=== PATIENT | female | born 1940 | race Caucasian/White ===

== ENCOUNTER → 2016-10-05 | Outpatient (CLI) | payer MEDICARE, OTHER ==
[2016-10-05 08:15] LABS: ABSOLUTE EOSINOPHILS # (AUTO) 0.3 10^3/uL (0.0-0.6); ABSOLUTE LYMPHOCYTES (AUTO) 1.3 10^3/uL (0.5-4.7); ABSOLUTE MONOCYTES (AUTO) 0.5 10^3/uL (0.1-1.4); ABSOLUTE NEUT (AUTO) 2.8 10^3/uL (1.7-8.2); BASOPHILS % (AUTO) 0.9 % (0-2); EOSINOPHILS % (AUTO) 5.9 % (0-6); HEMATOCRIT 34.7 % (36.0-47.0); HEMOGLOBIN 11.6 g/dL (12.0-15.5); HGB HCT DIFFERENCE 0.1; LYMPHOCYTES % (AUTO) 26.4 % (13-45); MEAN CORPUSCULAR HEMOGLOBIN 30.6 pg (27.0-33.4); MEAN CORPUSCULAR HGB CONC 33.3 g/dL (32.0-36.0); MEAN CORPUSCULAR VOLUME 92 fl (80-97); MONOCYTES % (AUTO) 9.6 % (3-13); RED BLOOD COUNT 3.77 10^6/uL (3.72-5.28); RED CELL DISTRIBUTION WIDTH 14.2 % (11.5-14.0); SEGMENTED NEUTROPHILS % (AUTO) 57.2 % (42-78); WHITE BLOOD COUNT 4.9 10^3/uL (4.0-10.5)
[2016-10-05 08:36] LABS: ALANINE AMINOTRANSFERASE 31 U/L (9-52); ALBUMIN 3.6 g/dL (3.5-5.0); ALKALINE PHOSPHATASE 163 U/L (38-126); ANION GAP 12 (5-19); ASPARTATE AMINO TRANSFERASE 19 U/L (14-36); BILIRUBIN,DIRECT 0.3 mg/dL (0.0-0.4); BILIRUBIN,TOTAL 0.3 mg/dL (0.2-1.3); BLOOD UREA NITROGEN 30 mg/dL (7-20); CALCIUM 9.7 mg/dL (8.4-10.2); CARBON DIOXIDE 25 mmol/L (22-30); CHLORIDE 107 mmol/L (98-107); Direct HDL 36 mg/dL (>40); GLUCOSE 96 mg/dL (75-110); POTASSIUM 5.7 mmol/L (3.6-5.0); SODIUM 144.1 mmol/L (137-145); TOTAL PROTEIN 6.6 g/dL (6.3-8.2); TRIGLYCERIDES 253 mg/dL (<150)
[2016-10-05 08:46] LABS: DIRECT LDL 121 mg/dL (<100)
[2016-10-05 08:47] LABS: VLDL CHOLESTEROL 50.6 mg/dL (10-31)
== END ==
LOC: OD 07:06
PROVIDERS: ATTEND Internal Medicine
DX: R53.82 Chronic fatigue, unspecified (principal); I10 Essential (primary) hypertension; E78.5 Hyperlipidemia, unspecified; J44.9 Chronic obstructive pulmonary disease, unspecified
CPT/HCPCS: 36415; 80053; 80061; 84443; 85025

== ENCOUNTER → 2016-10-25 | Outpatient (CLI) | payer MEDICARE, OTHER ==
[2016-10-25 11:28] LABS: ANION GAP 11 (5-19); BLOOD UREA NITROGEN 32 mg/dL (7-20); CARBON DIOXIDE 27 mmol/L (22-30); CHLORIDE 105 mmol/L (98-107); CREATININE RESULT 1.07 mg/dL (0.52-1.25); MAGNESIUM 1.6 mg/dL (1.6-2.3); SODIUM 142.9 mmol/L (137-145)
[2016-10-25 11:39] LABS: POTASSIUM 5.9 mmol/L (3.6-5.0)
== END ==
LOC: OD 10:08
PROVIDERS: ATTEND Internal Medicine
DX: E87.5 Hyperkalemia (principal); N18.9 Chronic kidney disease, unspecified
CPT/HCPCS: 36415; 80051; 82565; 83735; 84520

== ENCOUNTER → 2016-11-15 | Outpatient (CLI) | payer MEDICARE, OTHER ==
[2016-11-15 12:42] LABS: ANION GAP 12 (5-19); BLOOD UREA NITROGEN 46 mg/dL (7-20); CARBON DIOXIDE 30 mmol/L (22-30); CHLORIDE 98 mmol/L (98-107); CREATININE RESULT 1.25 mg/dL (0.52-1.25); POTASSIUM 5.6 mmol/L (3.6-5.0); SODIUM 140.1 mmol/L (137-145)
== END ==
LOC: OD 11:12
PROVIDERS: ATTEND Internal Medicine
DX: E87.5 Hyperkalemia (principal); I10 Essential (primary) hypertension; N18.9 Chronic kidney disease, unspecified
CPT/HCPCS: 36415; 80051; 82565; 84520

== ENCOUNTER → 2017-01-10 | Outpatient (CLI) | payer MEDICARE, OTHER ==
[2017-01-10 14:08] LABS: HEMATOCRIT 34.9 % (36.0-47.0); HEMOGLOBIN 11.7 g/dL (12.0-15.5); HGB HCT DIFFERENCE 0.2; MEAN CORPUSCULAR HEMOGLOBIN 30.9 pg (27.0-33.4); MEAN CORPUSCULAR HGB CONC 33.6 g/dL (32.0-36.0); MEAN CORPUSCULAR VOLUME 92 fl (80-97); RED BLOOD COUNT 3.79 10^6/uL (3.72-5.28); RED CELL DISTRIBUTION WIDTH 14.3 % (11.5-14.0); WHITE BLOOD COUNT 5.7 10^3/uL (4.0-10.5)
[2017-01-10 14:28] LABS: ANION GAP 10 (5-19); BLOOD UREA NITROGEN 37 mg/dL (7-20); CALCIUM 9.2 mg/dL (8.4-10.2); CARBON DIOXIDE 26 mmol/L (22-30); CHLORIDE 103 mmol/L (98-107); GLUCOSE 94 mg/dL (75-110); POTASSIUM 4.9 mmol/L (3.6-5.0); SODIUM 139.2 mmol/L (137-145)
[2017-01-10 14:52] LABS: APPEARANCE,URINE SLIGHTLY-CLOUDY; BILIRUBIN,URINE NEGATIVE (NEGATIVE); GLUCOSE, URINE NEGATIVE (NEGATIVE); KETONES,URINE NEGATIVE (NEGATIVE); URINE SPECIFIC GRAVITY 1.018
[2017-01-10 14:53] LABS: BACTERIA,URINE TRACE /HPF; LEUKOCYTE ESTERASE,URINE NEGATIVE (NEGATIVE); NITRITE,URINE NEGATIVE (NEGATIVE); PROTEIN,URINE 30 mg/dL (NEGATIVE); RBC,URINE NONE SEEN /HPF; UROBILINOGEN,URINE NEGATIVE mg/dL (<2.0); WBC,URINE NONE SEEN /HPF
== END ==
LOC: OD 12:43
PROVIDERS: ATTEND Internal Medicine Nephrology
DX: I12.9 Hypertensive chronic kidney disease with stage 1 through stage 4 chronic kidney disease, or unspecified chronic kidney disease (principal); N18.3 Chronic kidney disease, stage 3 (moderate); E87.5 Hyperkalemia
CPT/HCPCS: 36415; 80048; 81001; 85027

== ENCOUNTER → 2017-04-11 | Outpatient (CLI) | payer MEDICARE, OTHER ==
[2017-04-11 08:30] LABS: HEMATOCRIT 34.4 % (36.0-47.0); HEMOGLOBIN 11.9 g/dL (12.0-15.5); HGB HCT DIFFERENCE 1.3; MEAN CORPUSCULAR HEMOGLOBIN 31.7 pg (27.0-33.4); MEAN CORPUSCULAR HGB CONC 34.7 g/dL (32.0-36.0); MEAN CORPUSCULAR VOLUME 91 fl (80-97); RED BLOOD COUNT 3.76 10^6/uL (3.72-5.28); RED CELL DISTRIBUTION WIDTH 13.7 % (11.5-14.0); WHITE BLOOD COUNT 5.3 10^3/uL (4.0-10.5)
[2017-04-11 08:39] LABS: APPEARANCE,URINE SLIGHTLY-CLOUDY; BILIRUBIN,URINE NEGATIVE (NEGATIVE); GLUCOSE, URINE NEGATIVE (NEGATIVE); KETONES,URINE NEGATIVE (NEGATIVE); LEUKOCYTE ESTERASE,URINE NEGATIVE (NEGATIVE); NITRITE,URINE NEGATIVE (NEGATIVE); PROTEIN,URINE NEGATIVE (NEGATIVE); URINE SPECIFIC GRAVITY 1.013; UROBILINOGEN,URINE NEGATIVE mg/dL (<2.0)
[2017-04-11 08:57] LABS: ANION GAP 10 (5-19); BLOOD UREA NITROGEN 37 mg/dL (7-20); CARBON DIOXIDE 29 mmol/L (22-30); CHLORIDE 103 mmol/L (98-107); CREATININE RESULT 1.26 mg/dL (0.52-1.25); GLUCOSE 96 mg/dL (75-110); POTASSIUM 5.4 mmol/L (3.6-5.0); SODIUM 142.2 mmol/L (137-145)
[2017-04-11 09:06] LABS: URINE CREATININE 76.9 mg/dL (15-278); URINE PROTEIN 11.3 mg/dL (<12)
== END ==
LOC: OD 07:36
PROVIDERS: ATTEND Internal Medicine Nephrology
DX: I12.9 Hypertensive chronic kidney disease with stage 1 through stage 4 chronic kidney disease, or unspecified chronic kidney disease (principal); N18.3 Chronic kidney disease, stage 3 (moderate); E87.5 Hyperkalemia
CPT/HCPCS: 36415; 80048; 81001; 82570; 84156; 85027

== ENCOUNTER → 2017-06-21 | Outpatient (CLI) | payer MEDICARE, OTHER ==
--- NOTE | 2017-06-21 10:08 | WOMENS IMAGING REPORT ---
EXAM DESCRIPTION: BONE DENSITY HIP/SPINE COMPLETED DATE/TIME: 06/21/2017 9:59 am REASON FOR STUDY: AGE-RELATED OSTEOPROSIS; M81.0 M81.0 AGE-RELATED OSTEOPOROSIS W/O CURRENT PATHOLO JAMIE FRAC COMPARISON: None. TECHNIQUE: Dual-Energy X-ray Absorptiometry (DEXA) of the AP Spine and Hip. LIMITATIONS: None. FINDINGS: LUMBAR SPINE: The bone mineral density (BMD) measured from L1-L4 in the AP projection correlates with a T-score of 0.4, which is normal as defined by the World Health Organization. HIP: The bone mineral density (BMD) measured in the left hip correlates with a T-score of -1.4, which is o steopenia as defined by the World Health Organization. IMPRESSION: 1. LUMBAR SPINE: NORMAL. 2. HIP: OSTEOPENIA. COMMENT: The World Health Organization defines low BMD as follows: T-score: Normal: Greater than -1.0 Osteopenia: Between -1.0 and -2.5 Osteoporosis: Less than -2.5 without fractures Established osteoporosis: Less than -2.5 with fractures In general, you may wish to consider: Diagnosis Treatment Follow-up DEXA Normal BMD Prevention 2-3 years Osteopenia Prevention/Therapy 1-2 years Osteoporosis Therapy Yearly TECHNICAL DOCUMENTATION: JOB ID: [id number] [employer]- All Rights Reserved
== END ==
LOC: RAD 09:38
PROVIDERS: ATTEND Internal Medicine Rheumatology
DX: M81.0 Age-related osteoporosis without current pathological fracture (principal)
CPT/HCPCS: 77080

== ENCOUNTER → 2017-07-15 | Outpatient (CLI) | payer MEDICARE, OTHER ==
[2017-07-15 09:06] LABS: HEMATOCRIT 34.4 % (36.0-47.0); HEMOGLOBIN 11.6 g/dL (12.0-15.5); MEAN CORPUSCULAR HEMOGLOBIN 30.7 pg (27.0-33.4); MEAN CORPUSCULAR HGB CONC 33.8 g/dL (32.0-36.0); MEAN CORPUSCULAR VOLUME 91 fl (80-97); PLATELET COUNT 200 10^3/uL (150-450); RED BLOOD COUNT 3.79 10^6/uL (3.72-5.28); RED CELL DISTRIBUTION WIDTH 13.6 % (11.5-14.0); WHITE BLOOD COUNT 7.6 10^3/uL (4.0-10.5)
[2017-07-15 09:20] LABS: APPEARANCE,URINE SLIGHTLY-CLOUDY; BILIRUBIN,URINE NEGATIVE (NEGATIVE); COLOR,URINE YELLOW; GLUCOSE, URINE NEGATIVE (NEGATIVE); KETONES,URINE NEGATIVE (NEGATIVE); LEUKOCYTE ESTERASE,URINE NEGATIVE (NEGATIVE); NITRITE,URINE NEGATIVE (NEGATIVE); PROTEIN,URINE NEGATIVE (NEGATIVE); URINE SPECIFIC GRAVITY 1.016; UROBILINOGEN,URINE NEGATIVE mg/dL (<2.0)
[2017-07-15 09:30] LABS: ANION GAP 12 (5-19); BLOOD UREA NITROGEN 38 mg/dL (7-20); CALCIUM 9.9 mg/dL (8.4-10.2); CARBON DIOXIDE 26 mmol/L (22-30); CHLORIDE 105 mmol/L (98-107); GLUCOSE 101 mg/dL (75-110); MAGNESIUM 1.8 mg/dL (1.6-2.3); POTASSIUM 5.2 mmol/L (3.6-5.0); SODIUM 142.5 mmol/L (137-145)
== END ==
LOC: OD 07:51
PROVIDERS: ATTEND Physician Assistant Medical
DX: N18.3 Chronic kidney disease, stage 3 (moderate) (principal); I12.9 Hypertensive chronic kidney disease with stage 1 through stage 4 chronic kidney disease, or unspecified chronic kidney disease; R80.9 Proteinuria, unspecified; E87.5 Hyperkalemia
CPT/HCPCS: 36415; 80048; 81001; 83735; 85027

== ENCOUNTER → 2017-11-29 | Outpatient (CLI) | payer MEDICARE, OTHER ==
[2017-11-29 08:34] LABS: HEMATOCRIT 35.6 % (36.0-47.0); HEMOGLOBIN 12.2 g/dL (12.0-15.5); MEAN CORPUSCULAR HEMOGLOBIN 31.1 pg (27.0-33.4); MEAN CORPUSCULAR HGB CONC 34.2 g/dL (32.0-36.0); MEAN CORPUSCULAR VOLUME 91 fl (80-97); PLATELET COUNT 213 10^3/uL (150-450); RED BLOOD COUNT 3.91 10^6/uL (3.72-5.28); RED CELL DISTRIBUTION WIDTH 13.9 % (11.5-14.0); WHITE BLOOD COUNT 5.9 10^3/uL (4.0-10.5)
[2017-11-29 08:57] LABS: ANION GAP 10 (5-19); BLOOD UREA NITROGEN 39 mg/dL (7-20); CALCIUM 9.8 mg/dL (8.4-10.2); CARBON DIOXIDE 31 mmol/L (22-30); CHLORIDE 100 mmol/L (98-107); GLUCOSE 108 mg/dL (75-110); POTASSIUM 4.9 mmol/L (3.6-5.0); SODIUM 141.4 mmol/L (137-145)
[2017-11-29 09:05] LABS: APPEARANCE,URINE SLIGHTLY-CLOUDY; BILIRUBIN,URINE NEGATIVE (NEGATIVE); COLOR,URINE YELLOW; GLUCOSE, URINE NEGATIVE (NEGATIVE); KETONES,URINE NEGATIVE (NEGATIVE); LEUKOCYTE ESTERASE,URINE NEGATIVE (NEGATIVE); NITRITE,URINE NEGATIVE (NEGATIVE); PROTEIN,URINE NEGATIVE (NEGATIVE); URINE SPECIFIC GRAVITY 1.009; UROBILINOGEN,URINE NEGATIVE mg/dL (<2.0)
[2017-11-29 09:38] LABS: UR PRO/CREAT RATIO RESULT 0.3 mg/mg (0.0-0.2); URINE CREATININE 52.5 mg/dL (15-278); URINE PROTEIN 16.4 mg/dL (<12)
== END ==
LOC: OD 07:18
PROVIDERS: ATTEND Internal Medicine Nephrology
DX: N18.3 Chronic kidney disease, stage 3 (moderate) (principal); R80.9 Proteinuria, unspecified; E87.5 Hyperkalemia
CPT/HCPCS: 36415; 80048; 81001; 82570; 84156; 85027

== ENCOUNTER → 2018-02-22 | Outpatient (CLI) | payer MEDICARE, OTHER ==
--- NOTE | 2018-02-22 08:21 | RADIOLOGY REPORT (SQ) ---
EXAM DESCRIPTION: CHEST PA/LATERAL COMPLETED DATE/TIME: 02/22/2018 7:45 am REASON FOR STUDY: CHRONIC OBSTRUCTIVE PULMONARY DISEASE, UNSPECIFIED,SOB COMPARISON: Chest films 01/09/2013, 07/22/2012, 10/05/2011 EXAM PARAMETERS: NUMBER OF VIEWS: two views TECHNIQUE: Digital Frontal and Lateral radiographic views of the chest acquired. RADIATION DOSE: NA LIMITATIONS: none FINDINGS: LUNGS AND PLEURA: Blurring of the lingular heart border on the frontal film, worrisome for lingular atelectasis or pneumonia. Remainder of the lungs are free of focal infiltrates. No pleural effusion. No pneumothorax. MEDIASTINUM AND HILAR STRUCTURES: No masses or contour abnormalities. HEART AND VASCULAR STRUCTURES: Mild cardiomegaly BONES: No acute findings. HARDWARE: None in the chest. OTHER: No other significant finding. IMPRESSION: Lingular airspace disease atelectasis versus pneumonia TECHNICAL DOCUMENTATION: JOB ID: [id number] [employer]- All Rights Reserved Reading location - IP/workstation name: [email or web address]
[2018-02-22 08:30] LABS: ABSOLUTE BASOPHILS # (AUTO) 0.1 10^3/uL (0.0-0.2); ABSOLUTE EOSINOPHILS # (AUTO) 0.4 10^3/uL (0.0-0.6); ABSOLUTE LYMPHOCYTES (AUTO) 2.3 10^3/uL (0.5-4.7); ABSOLUTE MONOCYTES (AUTO) 0.5 10^3/uL (0.1-1.4); ABSOLUTE NEUT (AUTO) 3.3 10^3/uL (1.7-8.2); BASOPHILS % (AUTO) 0.9 % (0-2); EOSINOPHILS % (AUTO) 5.4 % (0-6); HEMATOCRIT 35.8 % (36.0-47.0); HEMOGLOBIN 12.3 g/dL (12.0-15.5); MEAN CORPUSCULAR HEMOGLOBIN 31.2 pg (27.0-33.4); MEAN CORPUSCULAR HGB CONC 34.4 g/dL (32.0-36.0); MEAN CORPUSCULAR VOLUME 91 fl (80-97); MONOCYTES % (AUTO) 8.2 % (3-13); PLATELET COUNT 224 10^3/uL (150-450); RED BLOOD COUNT 3.94 10^6/uL (3.72-5.28); RED CELL DISTRIBUTION WIDTH 13.5 % (11.5-14.0); SEGMENTED NEUTROPHILS % (AUTO) 50.5 % (42-78); TOTAL CELLS COUNTED % (AUTO) 100 %; WHITE BLOOD COUNT 6.6 10^3/uL (4.0-10.5)
[2018-02-22 08:40] LABS: ALANINE AMINOTRANSFERASE 27 U/L (9-52); ALBUMIN 3.9 g/dL (3.5-5.0); ALKALINE PHOSPHATASE 137 U/L (38-126); ANION GAP 11 (5-19); ASPARTATE AMINO TRANSFERASE 23 U/L (14-36); BILIRUBIN,DIRECT 0.2 mg/dL (0.0-0.4); BILIRUBIN,TOTAL 0.2 mg/dL (0.2-1.3); BLOOD UREA NITROGEN 39 mg/dL (7-20); CALCIUM 9.2 mg/dL (8.4-10.2); CARBON DIOXIDE 28 mmol/L (22-30); CHLORIDE 107 mmol/L (98-107); CHOLESTEROL 264.74 mg/dL (0-200); GLUCOSE 112 mg/dL (75-110); POTASSIUM 5.5 mmol/L (3.6-5.0); TOTAL PROTEIN 6.9 g/dL (6.3-8.2); TRIGLYCERIDES 316 mg/dL (<150)
[2018-02-22 08:50] LABS: DIRECT LDL 123 mg/dL (<100)
[2018-02-22 08:52] LABS: VLDL CHOLESTEROL 63.2 mg/dL (10-31)
== END ==
LOC: OD 07:08
PROVIDERS: ATTEND Internal Medicine
DX: I12.9 Hypertensive chronic kidney disease with stage 1 through stage 4 chronic kidney disease, or unspecified chronic kidney disease (principal); N18.9 Chronic kidney disease, unspecified; E78.5 Hyperlipidemia, unspecified; E03.9 Hypothyroidism, unspecified; J44.9 Chronic obstructive pulmonary disease, unspecified; R06.02 Shortness of breath
CPT/HCPCS: 36415; 71046; 80053; 80061; 83735; 84443; 85025

== ENCOUNTER → 2018-03-01 | Outpatient (CLI) | payer MEDICARE, OTHER | LOC: OD 14:24 | PROVIDERS: ATTEND Physician Assistant Medical | DX: E87.5 Hyperkalemia (principal) | CPT/HCPCS: 36415; 84132 ==

== ENCOUNTER 2018-05-16 13:22 | Inpatient (IN) | payer MEDICARE, OTHER ==
[2018-05-16] MEDS ORDERED: (PENDING PHARMACY ID) (Zolpidem Tartrate [Ambien] 10 MG) PO PRN (16:40)
--- NOTE | 2018-05-16 17:02 | PDOC H&P ---
History of Present Illness Admission Date/PCP: 05/16/18 13:22 FARHAD DOWNS MD Patient complains of: Shortness of breath, cough congestion. Right foot pain History of Present Illness: ALEJANDRA APPIAH is a 78 year old female Past Medical History Cardiac Medical History: Reports: Hyperlipidema, Hypertension - MICARDIS Denies: Myocardial Infarction Pulmonary Medical History: Reports: Asthma - COPD, HOME O2 2 LITERS, Bronchitis , Chronic Obstructive Pulmonary Disease (COPD), Pneumonia Denies: Tuberculosis Neurological Medical History: Denies: Seizures Endocrine Medical History: Reports: Hypothyroidism Renal/ Medical History: Reports: Chronic Kidney Disease GI Medical History: Reports: Gastroesophageal Reflux Disease Denies: Hepatitis, Hiatal Hernia Musculoskeltal Medical History: Reports: Arthritis Psychiatric Medical History: Denies: Depression Hematology: Denies: Anemia, Sickle Cell Disease Past Surgical History Past Surgical History: Reports: Appendectomy, Hysterectomy, Orthopedic Surgery - right and left knee replacement, right RCR, Tonsillectomy Denies: Amputation, Mastectomy, Pacemaker Social History Smoking Status: Former Smoker Cigarettes Packs Per Day: 2 Number of Years Smokin Frequency of Alcohol Use: None Hx Recreational Drug Use: No Drugs: None Hx Prescription Drug Abuse: No Family History Family History: Reviewed & Not Pertinent Parental Family History Reviewed: Yes Children Family History Reviewed: Yes Sibling(s) Family History Reviewed.: Yes Medication/Allergy Home Medications: Albuterol Sulfate [Proair HFA] 2 puff IH Q4HP PRN 05/16/18 Aspirin [Aspirin EC] 81 mg PO DAILY 05/16/18 Clonidine HCl [Catapres 0.1 mg Tablet] 0.1 mg PO QHS 05/16/18 Ergocalciferol (Vitamin D2) [Vitamin D2] 50,000 unit PO [id number] 05/16/18 Escitalopram Oxalate [Lexapro 10 mg Tablet] 10 mg PO DAILY 05/16/18 Febuxostat [Uloric 40 mg Tablet] 40 mg PO DAILY 05/16/18 Fluticasone/Salmeterol [Advair 250-50 Diskus 28 dose] 1 puff IH Q12 05/16/18 Furosemide [Lasix 40 mg Tablet] 40 mg PO BID 05/16/18 Levalbuterol HCl [Xopenex Neb 0.63 mg/3 ml Ampul] 0.63 mg NEB [id number] PRN Levothyroxine Sodium [Synthroid] 100 mcg PO Q6AM 05/16/18 Rabeprazole Sodium [Aciphex] 20 mg PO BID 05/16/18 Rosuvastatin Calcium [Crestor 10 mg Tablet] 10 mg PO QHS 05/16/18 Telmisartan [Micardis 40 mg Tablet] 40 mg PO DAILY 05/16/18 Tiotropium [place] [Spiriva Handihaler 5 Cap/Kit (18 Mcg/Cap)] 1 cap IH DAILY Tolterodine Tartrate [Tolterodine Tartrate ER] 4 mg PO DAILY 05/16/18 Zolpidem Tartrate [Ambien] 10 mg PO HSP PRN 05/16/18 Allergies/Adverse Reactions: No Known Allergies Allergy (Verified 04/01/15 07:52) Review of Systems All systems: as per PMH Physical Exam Vital Signs: Temp Pulse Resp BP Pulse Ox 98.1 F 77 18 134/51 H 91 L 05/16/18 16:04 05/16/18 16:04 05/16/18 16:04 05/16/18 16:04 05/16/18 16:04 Intake & Output 05/15/18 05/16/18 05/17/18 06:59 06:59 06:59 Weight 91.5 kg General appearance: PRESENT: severe distress Eye exam: PRESENT: conjunctiva pink Mouth exam: PRESENT: dry mucosa Throat exam: PRESENT: tonsillar erythema Respiratory exam: PRESENT: rhonchi, wheezes Cardiovascular exam: PRESENT: RRR, +S1, +S2 GI/Abdominal exam: PRESENT: normal bowel sounds, soft Extremities exam: PRESENT: tenderness Neurological exam: PRESENT: alert, awake Assessment & Plan - Diagnosis (1) Pneumonia Qualifiers: Pneumonia type: due to Klebsiella pneumoniae Is this a current diagnosis for this admission?: Yes Plan: We will start the antibiotics (2) COPD with acute exacerbation Is this a current diagnosis for this admission?: Yes Plan: Continue nebulization treatment and steroids (3) Acute gout Is this a current diagnosis for this admission?: Yes Plan: We will start colchicine and steroids and continue Uloric (4) Hypertension Is this a current diagnosis for this admission?: Yes Plan: Continue current treatment (5) SVT (supraventricular tachycardia) Is this a current diagnosis for this admission?: Yes Plan: Continue current treatment (6) Hypothyroid Is this a current diagnosis for this admission?: Yes Plan: Continue current treatment
[2018-05-16 17:13] LABS: ABSOLUTE LYMPHOCYTES (AUTO) 0.9 10^3/uL (0.5-4.7); ABSOLUTE MONOCYTES (AUTO) 0.2 10^3/uL (0.1-1.4); ABSOLUTE NEUT (AUTO) 10.1 10^3/uL (1.7-8.2); BASOPHILS % (AUTO) 0.3 % (0-2); EOSINOPHILS % (AUTO) 0.1 % (0-6); HEMOGLOBIN 11.2 g/dL (12.0-15.5); LYMPHOCYTES % (AUTO) 7.8 % (13-45); MEAN CORPUSCULAR HEMOGLOBIN 31.1 pg (27.0-33.4); MEAN CORPUSCULAR HGB CONC 33.8 g/dL (32.0-36.0); MEAN CORPUSCULAR VOLUME 92 fl (80-97); MONOCYTES % (AUTO) 1.5 % (3-13); PLATELET COUNT 236 10^3/uL (150-450); RED BLOOD COUNT 3.59 10^6/uL (3.72-5.28); RED CELL DISTRIBUTION WIDTH 14.2 % (11.5-14.0); SEGMENTED NEUTROPHILS % (AUTO) 90.3 % (42-78); TOTAL CELLS COUNTED % (AUTO) 100 %; WHITE BLOOD COUNT 11.1 10^3/uL (4.0-10.5)
[2018-05-16 17:42] LABS: ALANINE AMINOTRANSFERASE 23 U/L (9-52); ALKALINE PHOSPHATASE 102 U/L (38-126); ANION GAP 15 (5-19); ASPARTATE AMINO TRANSFERASE 23 U/L (14-36); BILIRUBIN,DIRECT 0.3 mg/dL (0.0-0.4); BILIRUBIN,TOTAL 0.5 mg/dL (0.2-1.3); BLOOD UREA NITROGEN 36 mg/dL (7-20); CALCIUM 9.7 mg/dL (8.4-10.2); CARBON DIOXIDE 28 mmol/L (22-30); CHLORIDE 95 mmol/L (98-107); GLUCOSE 164 mg/dL (75-110); POTASSIUM 4.5 mmol/L (3.6-5.0); SODIUM 137.5 mmol/L (137-145); TOTAL PROTEIN 6.9 g/dL (6.3-8.2)
--- NOTE | 2018-05-16 17:49 | RADIOLOGY REPORT (SQ) ---
EXAM DESCRIPTION: CHEST 2 VIEWS COMPLETED DATE/TIME: 05/16/2018 5:35 pm REASON FOR STUDY: sob COMPARISON: December 2012 EXAM PARAMETERS: NUMBER OF VIEWS: two views TECHNIQUE: Digital Frontal and Lateral radiographic views of the chest acquired. RADIATION DOSE: NA LIMITATIONS: none FINDINGS: LUNGS AND PLEURA: There is increased density in the left lung base with some loss of defin ition of the left cardiac border which could represent atelectatic changes or a basilar infiltrate. Remaining lung shah are free of active infiltrates. No pleural effusions are identified. MEDIASTINUM AND HILAR STRUCTURES: No masses or contour abnormalities. HEART AND VASCULAR STRUCTURES: The configuration of the heart and mediastinal structures is unchanged . BONES: No acute findings. HARDWARE: None in the chest. OTHER: No other significant finding. IMPRESSION: Left basilar densities as noted above TECHNICAL DOCUMENTATION: JOB ID: [id number] [employer]- All Rights Reserved Reading location - IP/workstation name: [email or web address]
[2018-05-16] MEDS: METHYLPREDNISOLONE INJ 125 MG/2 ML SDV IV SCH (17:52)
[2018-05-16] MEDS: 1/2 NORMAL SALINE 1,000 ML IV PRN (17:52)
[2018-05-16] MEDS ORDERED: METHYLPREDNISOLONE INJ 40 MG/1 ML SDV IV SCH ×2 (18:00)
[2018-05-16] MEDS ORDERED: LEVOFLOXACIN 500 MG/D5W RTU 500 MG/100 ML RTUPB IV SCH (18:00)
[2018-05-16 18:23] LABS: ARTERIAL BLOOD BASE EXCESS -0.2 mmol/L; ARTERIAL BLOOD FIO2 2L; ARTERIAL BLOOD H2CO3 1.21 mmol/L (1.05-1.35); ARTERIAL BLOOD HCO3 24.5 mmol/L (20-24); ARTERIAL BLOOD O2 SATURATION 95.6 % (94-98); ARTERIAL BLOOD PCO2 40.1 mmHg (35-45); ARTERIAL BLOOD TOTAL CO2 25.7 mmol/L (21-25)
[2018-05-16] MEDS: ENOXAPARIN SODIUM INJ 40 MG/0.4 ML DISP.SYRIN SUBCUT SCH (18:28)
[2018-05-16] MEDS ORDERED: ZOLPIDEM TARTRATE 5 MG TABLET PO PRN (18:51)
[2018-05-16] MEDS: GUAIFENESIN 600 MG TABLET.SA PO SCH (21:33)
[2018-05-16] MEDS: COLCHICINE 0.6 MG TABLET PO SCH (21:33)
[2018-05-16] MEDS: ATORVASTATIN CALCIUM 20 MG TABLET PO SCH (21:33)
[2018-05-16] MEDS: TOLTERODINE TARTRATE 1 MG TABLET PO SCH (21:34)
[2018-05-16] MEDS: CLONIDINE HCL 0.1 MG TABLET PO SCH (21:34)
[2018-05-16] MEDS: CEFEPIME 2 GM/D5W RTU 2 GM/50 ML RTUPB IV SCH (21:46)
[2018-05-16] MEDS ORDERED: FUROSEMIDE INJ/PF 40 MG/4 ML SDV IV SCH (22:00)
[2018-05-17] MEDS: METHYLPREDNISOLONE INJ 125 MG/2 ML SDV IV SCH ×4 (00:03→17:20)
[2018-05-17] MEDS: LEVALBUTEROL HCL NEB 0.63 MG/3 ML AMPUL NEB PRN ×4 (00:28→16:06)
[2018-05-17 05:06] LABS: ABSOLUTE BASOPHILS # (AUTO) 0.1 10^3/uL (0.0-0.2); ABSOLUTE LYMPHOCYTES (AUTO) 1.1 10^3/uL (0.5-4.7); ABSOLUTE MONOCYTES (AUTO) 0.2 10^3/uL (0.1-1.4); ABSOLUTE NEUT (AUTO) 8.4 10^3/uL (1.7-8.2); BASOPHILS % (AUTO) 0.6 % (0-2); EOSINOPHILS % (AUTO) 0.4 % (0-6); HEMATOCRIT 31.3 % (36.0-47.0); HEMOGLOBIN 10.9 g/dL (12.0-15.5); LYMPHOCYTES % (AUTO) 10.9 % (13-45); MEAN CORPUSCULAR HEMOGLOBIN 31.2 pg (27.0-33.4); MEAN CORPUSCULAR HGB CONC 34.7 g/dL (32.0-36.0); MEAN CORPUSCULAR VOLUME 90 fl (80-97); PLATELET COUNT 224 10^3/uL (150-450); RED BLOOD COUNT 3.48 10^6/uL (3.72-5.28); RED CELL DISTRIBUTION WIDTH 13.8 % (11.5-14.0); SEGMENTED NEUTROPHILS % (AUTO) 86.1 % (42-78); TOTAL CELLS COUNTED % (AUTO) 100 %; WHITE BLOOD COUNT 9.7 10^3/uL (4.0-10.5)
[2018-05-17 05:18] LABS: ALBUMIN 3.8 g/dL (3.5-5.0); ANION GAP 15 (5-19); BLOOD UREA NITROGEN 51 mg/dL (7-20); CARBON DIOXIDE 23 mmol/L (22-30); CHLORIDE 98 mmol/L (98-107); GLUCOSE 149 mg/dL (75-110); SODIUM 135.8 mmol/L (137-145); TOTAL PROTEIN 6.8 g/dL (6.3-8.2)
[2018-05-17] MEDS: LEVOTHYROXINE SODIUM 0.1 MG TABLET PO SCH (05:32)
[2018-05-17 05:44] LABS: ALANINE AMINOTRANSFERASE 26 U/L (9-52); ALKALINE PHOSPHATASE 98 U/L (38-126); ASPARTATE AMINO TRANSFERASE 36 U/L (14-36); BILIRUBIN,DIRECT 0.3 mg/dL (0.0-0.4); BILIRUBIN,TOTAL 0.6 mg/dL (0.2-1.3); CALCIUM 9.4 mg/dL (8.4-10.2)
--- NOTE | 2018-05-17 08:47 | PDOC PROGRESS REPORT ---
Subjective Progress Note for:: 05/17/18 Subjective:: The patient states to feel much better. She is still very short of breath and has a lot of cough. Heart gout seem to be under control. Reason For Visit: PNEUMONIA,COPD EXACERBATION,ACUTE GOUT, Physical Exam Vital Signs: Temp Pulse Resp BP Pulse Ox 97.6 F 77 24 H 136/65 H 94 05/16/18 23:48 05/17/18 07:00 05/17/18 00:28 05/16/18 23:48 05/17/18 00:28 Intake & Output 05/16/18 05/17/18 05/18/18 06:59 06:59 06:59 Intake Total 150 Balance 150 Weight 92.8 kg General appearance: PRESENT: mild distress Head exam: PRESENT: atraumatic Eye exam: PRESENT: conjunctiva pink Respiratory exam: PRESENT: decreased breath sounds, wheezes Cardiovascular exam: PRESENT: RRR, +S1, +S2 GI/Abdominal exam: PRESENT: normal bowel sounds, soft Extremities exam: PRESENT: full ROM, pedal edema, tenderness Musculoskeletal exam: PRESENT: ambulatory Results Laboratory Results: 05/17/18 04:21 05/17/18 04:21 05/16/18 05/16/18 05/16/18 17:05 17:05 18:08 WBC 11.1 H RBC 3.59 L Hgb 11.2 L Hct 33.0 L MCV 92 MCH 31.1 MCHC 33.8 RDW 14.2 H Plt Count 236 Seg Neutrophils % 90.3 H Lymphocytes % 7.8 L Monocytes % 1.5 L Eosinophils % 0.1 Basophils % 0.3 Absolute Neutrophils 10.1 H Absolute Lymphocytes 0.9 Absolute Monocytes 0.2 Absolute Eosinophils 0.0 Absolute Basophils 0.0 Carbonic Acid 1.21 HCO3/H2CO3 Ratio 20:1 ABG pH 7.40 ABG pCO2 40.1 ABG pO2 78.0 L ABG HCO3 24.5 H ABG O2 Saturation 95.6 ABG Base Excess -0.2 FiO2 2L Sodium 137.5 Potassium 4.5 Chloride 95 L Carbon Dioxide 28 Anion Gap 15 BUN 36 H Creatinine 1.60 H Est GFR ( Amer) 38 L Est GFR (Non-Af Amer) 31 L Glucose 164 H Calcium 9.7 Total Bilirubin 0.5 AST 23 ALT 23 Alkaline Phosphatase 102 Total Protein 6.9 Albumin 4.0 05/17/18 05/17/18 04:21 04:21 WBC 9.7 RBC 3.48 L Hgb 10.9 L Hct 31.3 L MCV 90 MCH 31.2 MCHC 34.7 RDW 13.8 Plt Count 224 Seg Neutrophils % 86.1 H Lymphocytes % 10.9 L Monocytes % 2.0 L Eosinophils % 0.4 Basophils % 0.6 Absolute Neutrophils 8.4 H Absolute Lymphocytes 1.1 Absolute Monocytes 0.2 Absolute Eosinophils 0.0 Absolute Basophils 0.1 Carbonic Acid HCO3/H2CO3 Ratio ABG pH ABG pCO2 ABG pO2 ABG HCO3 ABG O2 Saturation ABG Base Excess FiO2 Sodium 135.8 L Potassium 5.0 Chloride 98 Carbon Dioxide 23 Anion Gap 15 BUN 51 H Creatinine 1.72 H Est GFR ( Amer) 35 L Est GFR (Non-Af Amer) 29 L Glucose 149 H Calcium 9.4 Total Bilirubin 0.6 AST 36 ALT 26 Alkaline Phosphatase 98 Total Protein 6.8 Albumin 3.8 Impressions: Chest X-Ray 05/16/18 16:36 IMPRESSION: Left basilar densities as noted above Assessment & Plan - Diagnosis (1) Pneumonia Qualifiers: Pneumonia type: due to Klebsiella pneumoniae Is this a current diagnosis for this admission?: Yes Plan: Continue current antibiotics and steroids (2) COPD with acute exacerbation Is this a current diagnosis for this admission?: Yes Plan: Continue nebulization treatment and steroids (3) Acute gout Is this a current diagnosis for this admission?: Yes Plan: We will start colchicine and steroids and continue Uloric (4) Hypertension Is this a current diagnosis for this admission?: Yes Plan: Continue current treatment (5) SVT (supraventricular tachycardia) Is this a current diagnosis for this admission?: Yes Plan: Continue current treatment (6) Hypothyroid Is this a current diagnosis for this admission?: Yes Plan: Continue current treatment
[2018-05-17] MEDS: LEVOFLOXACIN 500 MG TABLET PO SCH (09:42)
[2018-05-17] MEDS: FUROSEMIDE 40 MG TABLET PO SCH ×2 (09:43→17:21)
[2018-05-17] MEDS: GUAIFENESIN 600 MG TABLET.SA PO SCH ×2 (09:43→21:38)
[2018-05-17] MEDS: COLCHICINE 0.6 MG TABLET PO SCH ×2 (09:43→21:38)
[2018-05-17] MEDS: LOSARTAN POTASSIUM 50 MG TABLET PO SCH (09:44)
[2018-05-17] MEDS: ASPIRIN 81 MG TABLET, ENT COATED PO SCH (09:44)
[2018-05-17] MEDS: ESCITALOPRAM OXALATE 10 MG TABLET PO SCH (09:47)
[2018-05-17] MEDS: TOLTERODINE TARTRATE 1 MG TABLET PO SCH ×2 (09:48→21:37)
[2018-05-17] MEDS: FEBUXOSTAT 40 MG TABLET PO SCH (09:49)
[2018-05-17] MEDS: ENOXAPARIN SODIUM INJ 40 MG/0.4 ML DISP.SYRIN SUBCUT SCH (09:50)
[2018-05-17] MEDS: TIOTROPIUM BROMIDE DPI 5 CAP/KIT (18 MCG/CAP) IH SCH (09:57)
[2018-05-17] MEDS ORDERED: (PENDING PHARMACY ID) (Telmisartan [Micardis 40 Mg Tablet] 40 MG) PO SCH (10:00)
[2018-05-17] MEDS: CEFEPIME 2 GM/D5W RTU 2 GM/50 ML RTUPB IV SCH ×2 (10:00→21:36)
[2018-05-17] MEDS ORDERED: (PENDING PHARMACY ID) (Tolterodine Tartrate [Tolterodine Tartrate Er] 4 MG) PO SCH (10:00)
[2018-05-17] MEDS: 1/2 NORMAL SALINE 1,000 ML IV PRN (15:14)
[2018-05-17] MEDS: CLONIDINE HCL 0.1 MG TABLET PO SCH (21:38)
[2018-05-17] MEDS: ATORVASTATIN CALCIUM 20 MG TABLET PO SCH (21:38)
[2018-05-18] MEDS: METHYLPREDNISOLONE INJ 125 MG/2 ML SDV IV SCH ×5 (00:29→23:54)
[2018-05-18] MEDS: LEVOTHYROXINE SODIUM 0.1 MG TABLET PO SCH (05:09)
[2018-05-18] MEDS: 1/2 NORMAL SALINE 1,000 ML IV PRN ×3 (05:12→22:20)
[2018-05-18 05:23] LABS: ABSOLUTE LYMPHOCYTES (AUTO) 0.8 10^3/uL (0.5-4.7); ABSOLUTE MONOCYTES (AUTO) 0.5 10^3/uL (0.1-1.4); ABSOLUTE NEUT (AUTO) 8.3 10^3/uL (1.7-8.2); BASOPHILS % (AUTO) 0.2 % (0-2); HEMATOCRIT 31.2 % (36.0-47.0); HEMOGLOBIN 10.9 g/dL (12.0-15.5); MEAN CORPUSCULAR HEMOGLOBIN 31.3 pg (27.0-33.4); MEAN CORPUSCULAR HGB CONC 34.9 g/dL (32.0-36.0); MEAN CORPUSCULAR VOLUME 90 fl (80-97); MONOCYTES % (AUTO) 4.7 % (3-13); PLATELET COUNT 245 10^3/uL (150-450); RED BLOOD COUNT 3.48 10^6/uL (3.72-5.28); RED CELL DISTRIBUTION WIDTH 13.8 % (11.5-14.0); SEGMENTED NEUTROPHILS % (AUTO) 87.1 % (42-78); TOTAL CELLS COUNTED % (AUTO) 100 %; WHITE BLOOD COUNT 9.6 10^3/uL (4.0-10.5)
[2018-05-18 05:41] LABS: ANION GAP 16 (5-19); BLOOD UREA NITROGEN 73 mg/dL (7-20); CALCIUM 9.1 mg/dL (8.4-10.2); CARBON DIOXIDE 24 mmol/L (22-30); CHLORIDE 99 mmol/L (98-107); GLUCOSE 142 mg/dL (75-110); POTASSIUM 4.6 mmol/L (3.6-5.0)
[2018-05-18] MEDS: ENOXAPARIN SODIUM INJ 40 MG/0.4 ML DISP.SYRIN SUBCUT SCH (09:40)
[2018-05-18] MEDS: TIOTROPIUM BROMIDE DPI 5 CAP/KIT (18 MCG/CAP) IH SCH (09:40)
[2018-05-18] MEDS: FEBUXOSTAT 40 MG TABLET PO SCH (09:41)
[2018-05-18] MEDS: ESCITALOPRAM OXALATE 10 MG TABLET PO SCH (09:42)
[2018-05-18] MEDS: TOLTERODINE TARTRATE 1 MG TABLET PO SCH ×2 (09:42→21:51)
[2018-05-18] MEDS: FUROSEMIDE 40 MG TABLET PO SCH ×2 (09:42→17:03)
[2018-05-18] MEDS: ASPIRIN 81 MG TABLET, ENT COATED PO SCH (09:43)
[2018-05-18] MEDS: GUAIFENESIN 600 MG TABLET.SA PO SCH ×2 (09:43→21:52)
[2018-05-18] MEDS: LOSARTAN POTASSIUM 50 MG TABLET PO SCH (09:43)
[2018-05-18] MEDS: COLCHICINE 0.6 MG TABLET PO SCH ×2 (09:43→21:52)
[2018-05-18] MEDS: LEVOFLOXACIN 500 MG TABLET PO SCH (09:43)
[2018-05-18] MEDS: CEFEPIME 2 GM/D5W RTU 2 GM/50 ML RTUPB IV SCH ×2 (09:49→21:50)
[2018-05-18] MEDS: LEVALBUTEROL HCL NEB 0.63 MG/3 ML AMPUL NEB PRN ×2 (11:35→16:14)
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
[2018-05-18] MEDS: IPRATROPIUM/ALBUTEROL 0.5-2.5 MG/3 ML AMPUL NEB SCH ×2 (20:02→23:44)
[2018-05-18] MEDS: ATORVASTATIN CALCIUM 20 MG TABLET PO SCH (21:51)
[2018-05-18] MEDS: CLONIDINE HCL 0.1 MG TABLET PO SCH (21:52)
[2018-05-18] MEDS: HYDRALAZINE HCL 25 MG TABLET PO SCH (21:52)
[2018-05-19] MEDS: IPRATROPIUM/ALBUTEROL 0.5-2.5 MG/3 ML AMPUL NEB SCH ×5 (04:36→19:54)
[2018-05-19] MEDS: LEVOTHYROXINE SODIUM 0.1 MG TABLET PO SCH (05:05)
[2018-05-19] MEDS: METHYLPREDNISOLONE INJ 125 MG/2 ML SDV IV SCH ×4 (05:05→23:46)
[2018-05-19] MEDS: HYDRALAZINE HCL 25 MG TABLET PO SCH ×3 (05:05→21:01)
[2018-05-19 05:22] LABS: ABSOLUTE LYMPHOCYTES (AUTO) 0.8 10^3/uL (0.5-4.7); ABSOLUTE MONOCYTES (AUTO) 0.5 10^3/uL (0.1-1.4); ABSOLUTE NEUT (AUTO) 7.7 10^3/uL (1.7-8.2); BASOPHILS % (AUTO) 0.1 % (0-2); HEMATOCRIT 30.5 % (36.0-47.0); HEMOGLOBIN 10.8 g/dL (12.0-15.5); LYMPHOCYTES % (AUTO) 8.5 % (13-45); MEAN CORPUSCULAR HEMOGLOBIN 31.9 pg (27.0-33.4); MEAN CORPUSCULAR HGB CONC 35.5 g/dL (32.0-36.0); MEAN CORPUSCULAR VOLUME 90 fl (80-97); MONOCYTES % (AUTO) 5.2 % (3-13); PLATELET COUNT 235 10^3/uL (150-450); SEGMENTED NEUTROPHILS % (AUTO) 86.2 % (42-78); TOTAL CELLS COUNTED % (AUTO) 100 %; WHITE BLOOD COUNT 8.9 10^3/uL (4.0-10.5)
[2018-05-19 05:46] LABS: ALANINE AMINOTRANSFERASE 37 U/L (9-52); ALBUMIN 3.5 g/dL (3.5-5.0); ALKALINE PHOSPHATASE 91 U/L (38-126); ANION GAP 15 (5-19); ASPARTATE AMINO TRANSFERASE 38 U/L (14-36); BILIRUBIN,DIRECT 0.3 mg/dL (0.0-0.4); BILIRUBIN,TOTAL 0.3 mg/dL (0.2-1.3); BLOOD UREA NITROGEN 78 mg/dL (7-20); CALCIUM 8.3 mg/dL (8.4-10.2); CARBON DIOXIDE 24 mmol/L (22-30); CHLORIDE 101 mmol/L (98-107); GLUCOSE 174 mg/dL (75-110); POTASSIUM 3.9 mmol/L (3.6-5.0); SODIUM 139.7 mmol/L (137-145); TOTAL PROTEIN 6.4 g/dL (6.3-8.2)
[2018-05-19] MEDS: LORAZEPAM INJ 2 MG/1 ML VIAL IV PRN ×2 (08:20→21:12)
[2018-05-19] MEDS: ASPIRIN 81 MG TABLET, ENT COATED PO SCH (09:31)
[2018-05-19] MEDS: LEVOFLOXACIN 500 MG TABLET PO SCH (09:31)
[2018-05-19] MEDS: ESCITALOPRAM OXALATE 10 MG TABLET PO SCH (09:31)
[2018-05-19] MEDS: FEBUXOSTAT 40 MG TABLET PO SCH (09:31)
[2018-05-19] MEDS: COLCHICINE 0.6 MG TABLET PO SCH ×2 (09:31→21:01)
[2018-05-19] MEDS: GUAIFENESIN 600 MG TABLET.SA PO SCH ×2 (09:31→21:00)
[2018-05-19] MEDS: TIOTROPIUM BROMIDE DPI 5 CAP/KIT (18 MCG/CAP) IH SCH (09:32)
[2018-05-19] MEDS: TOLTERODINE TARTRATE 1 MG TABLET PO SCH ×2 (09:32→21:00)
[2018-05-19] MEDS: CEFEPIME 2 GM/D5W RTU 2 GM/50 ML RTUPB IV SCH ×2 (09:39→21:07)
[2018-05-19] MEDS: ENOXAPARIN SODIUM INJ 30 MG/0.3 ML DISP.SYRIN SUBCUT SCH (09:55)
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
[2018-05-19] MEDS: ATORVASTATIN CALCIUM 20 MG TABLET PO SCH (21:00)
[2018-05-19] MEDS: CLONIDINE HCL 0.1 MG TABLET PO SCH (21:01)
[2018-05-20] MEDS: IPRATROPIUM/ALBUTEROL 0.5-2.5 MG/3 ML AMPUL NEB SCH ×5 (00:08→16:07)
[2018-05-20 05:09] LABS: HEMOGLOBIN 11.1 g/dL (12.0-15.5); MEAN CORPUSCULAR HEMOGLOBIN 31.6 pg (27.0-33.4); MEAN CORPUSCULAR HGB CONC 34.8 g/dL (32.0-36.0); MEAN CORPUSCULAR VOLUME 91 fl (80-97); PLATELET COUNT 240 10^3/uL (150-450); RED BLOOD COUNT 3.52 10^6/uL (3.72-5.28); WHITE BLOOD COUNT 12.3 10^3/uL (4.0-10.5)
[2018-05-20] MEDS: METHYLPREDNISOLONE INJ 125 MG/2 ML SDV IV SCH ×4 (05:16→23:40)
[2018-05-20] MEDS: LEVOTHYROXINE SODIUM 0.1 MG TABLET PO SCH (05:16)
[2018-05-20] MEDS: HYDRALAZINE HCL 25 MG TABLET PO SCH ×3 (05:16→21:19)
[2018-05-20 05:41] LABS: ALANINE AMINOTRANSFERASE 40 U/L (9-52); ALBUMIN 3.4 g/dL (3.5-5.0); ALKALINE PHOSPHATASE 106 U/L (38-126); ANION GAP 15 (5-19); ASPARTATE AMINO TRANSFERASE 34 U/L (14-36); BILIRUBIN,DIRECT 0.3 mg/dL (0.0-0.4); BILIRUBIN,TOTAL 0.4 mg/dL (0.2-1.3); BLOOD UREA NITROGEN 69 mg/dL (7-20); CALCIUM 8.2 mg/dL (8.4-10.2); CARBON DIOXIDE 24 mmol/L (22-30); CHLORIDE 103 mmol/L (98-107); GLUCOSE 170 mg/dL (75-110); POTASSIUM 3.6 mmol/L (3.6-5.0); SODIUM 141.8 mmol/L (137-145); TOTAL PROTEIN 6.2 g/dL (6.3-8.2)
[2018-05-20 05:57] LABS: ABSOLUTE LYMPHOCYTES# (MANUAL) 0.6 10^3/uL (0.5-4.7); ABSOLUTE MONOCYTES # (MANUAL) 0.4 10^3/uL (0.1-1.4); ABSOLUTE NEUTROPHILS# (MANUAL) 11.3 10^3/uL (1.7-8.2); ANISOCYTOSIS SLIGHT; BASOPHILS % (MANUAL) 0 % (0-2); EOSINOPHILS % (MANUAL) 0 % (0-6); LYMPHOCYTES % (MANUAL) 5 % (13-45); MONOCYTES % (MANUAL) 3 % (3-13); PLATELET COMMENT ADEQUATE; POLYCHROMASIA SLIGHT; SEGMENTED NEUTROPHILS % (MAN) 92 % (42-78); TOTAL CELLS COUNTED 100
[2018-05-20] MEDS: COLCHICINE 0.6 MG TABLET PO SCH ×2 (09:29→21:19)
[2018-05-20] MEDS: TOLTERODINE TARTRATE 1 MG TABLET PO SCH ×2 (09:29→21:19)
[2018-05-20] MEDS: GUAIFENESIN 600 MG TABLET.SA PO SCH ×2 (09:29→21:18)
[2018-05-20] MEDS: ASPIRIN 81 MG TABLET, ENT COATED PO SCH (09:29)
[2018-05-20] MEDS: ESCITALOPRAM OXALATE 10 MG TABLET PO SCH (09:29)
[2018-05-20] MEDS: FEBUXOSTAT 40 MG TABLET PO SCH (09:29)
[2018-05-20] MEDS: CEFEPIME 2 GM/D5W RTU 2 GM/50 ML RTUPB IV SCH ×2 (09:30→21:18)
[2018-05-20] MEDS: ENOXAPARIN SODIUM INJ 30 MG/0.3 ML DISP.SYRIN SUBCUT SCH (09:30)
[2018-05-20] MEDS: TIOTROPIUM BROMIDE DPI 5 CAP/KIT (18 MCG/CAP) IH SCH (09:30)
[2018-05-20] MEDS: LEVOFLOXACIN 500 MG TABLET PO SCH (09:30)
[2018-05-20] MEDS: LORAZEPAM INJ 2 MG/1 ML VIAL IV PRN (13:20)
[2018-05-20] MEDS ORDERED: LEVALBUTEROL HCL NEB 0.63 MG/3 ML AMPUL NEB PRN ×2 (16:09→16:39)
[2018-05-20] MEDS ORDERED: LEVALBUTEROL HCL NEB 1.25 MG/3 ML AMPUL NEB PRN (18:38)
--- NOTE | 2018-05-20 19:04 | PDOC PROGRESS REPORT ---
Subjective Progress Note for:: 05/20/18 Subjective:: The patient is still feeling short of breath. She is still tachypneic. A new complaint is acid reflux. She is on a proton pump inhibitor at home regularly. Additionally due to the albuterol nebulizers she has become jittery. Reason For Visit: PNEUMONIA,COPD EXACERBATION,ACUTE GOUT, Physical Exam Vital Signs: Temp Pulse Resp BP Pulse Ox 99.1 F 95 18 144/44 H 92 05/20/18 15:23 05/20/18 16:07 05/20/18 16:07 05/20/18 15:23 05/20/18 16:07 Intake & Output 05/19/18 05/20/18 05/21/18 06:59 06:59 05:59 Intake Total 2048 2373 746 Output Total 1850 900 600 Balance 198 1473 146 Weight 90.9 kg 92.3 kg General appearance: PRESENT: cooperative, mild distress, morbidly obese, well- developed Head exam: PRESENT: atraumatic, normocephalic Eye exam: PRESENT: conjunctiva pink, EOMI. ABSENT: scleral icterus Ear exam: PRESENT: normal external ear exam Mouth exam: PRESENT: dry mucosa, tongue midline Neck exam: ABSENT: carotid bruit, JVD, lymphadenopathy Respiratory exam: PRESENT: clear to auscultation ping - The patient just completed a nebulizer treatment., decreased breath sounds, symmetrical. ABSENT : rales, wheezes Cardiovascular exam: PRESENT: RRR, +S1, +S2 GI/Abdominal exam: PRESENT: normal bowel sounds, soft. ABSENT: guarding, tenderness Neurological exam: PRESENT: alert, awake, oriented to person, oriented to place , oriented to time, oriented to situation Psychiatric exam: PRESENT: anxious Results Laboratory Results: 05/20/18 04:40 05/20/18 04:40 05/20/18 05/20/18 04:40 04:40 WBC 12.3 H RBC 3.52 L Hgb 11.1 L Hct 32.0 L MCV 91 MCH 31.6 MCHC 34.8 RDW 14.0 Plt Count 240 Seg Neutrophils % Not Reportable Lymphocytes % Not Reportable Monocytes % Not Reportable Eosinophils % Not Reportable Basophils % Not Reportable Absolute Neutrophils Not Reportable Absolute Lymphocytes Not Reportable Absolute Monocytes Not Reportable Absolute Eosinophils Not Reportable Absolute Basophils Not Reportable Sodium 141.8 Potassium 3.6 Chloride 103 Carbon Dioxide 24 Anion Gap 15 BUN 69 H Creatinine 1.71 H Est GFR ( Amer) 35 L Est GFR (Non-Af Amer) 29 L Glucose 170 H Calcium 8.2 L Magnesium 2.0 Total Bilirubin 0.4 AST 34 ALT 40 Alkaline Phosphatase 106 Total Protein 6.2 L Albumin 3.4 L 05/17/18 17:48 Sputum Gram Stain - Final 05/17/18 17:48 Sputum Sputum Culture - Final C.albicans/C.dubliniensis Normal Brittany Impressions: Chest X-Ray 05/16/18 16:36 IMPRESSION: Left basilar densities as noted above Assessment & Plan - Diagnosis (1) Pneumonia Qualifiers: Pneumonia type: due to unspecified organism Laterality: left Lung location: lower lobe of lung Qualified Code(s): J18.1 - Lobar pneumonia, unspecified organism Is this a current diagnosis for this admission?: Yes Plan: The patient has been afebrile. Her white blood cell count is increased slightly but I believe this is from her systemic corticosteroids. She will complete her antibiotics as ordered. (2) COPD with acute exacerbation Is this a current diagnosis for this admission?: Yes Plan: The DuoNeb's are making the patient jittery from the albuterol component. I have discontinued the DuoNeb's. I have started Xopenex 1.25 mg every 6 hours scheduled and every 3 hours as needed. Unfortunately there is no long-acting beta agonist nebulizer treatment available. I did confirm this after speaking with respiratory therapy. I do not believe she has the inspiratory capacity to utilize an Advair Diskus. We will do the best we can with her Spiriva inhaler. She remains on every 6 hours Solu-Medrol dosing. (3) Jgjuo-kw-butuuuw kidney injury Qualifiers: Chronic kidney disease stage: stage 4 (severe) Is this a current diagnosis for this admission?: Yes Plan: Her GFR today is only 29. Her diuretic therapy has been on hold. I believe this is contributing to her respiratory status. I did start IV Bumex to help remove fluid. It appears that she is right on the cusp of stage IIIa versus stage IV. Unfortunately a BNP will not be helpful because of her chronic kidney disease. (4) Hypertension Is this a current diagnosis for this admission?: Yes Plan: The patient's angiotensin receptor fiorella was held because of decreasing renal function. The patient is on hydralazine for pressure. Unfortunately the benefit of diuresis at this point outweighs risk and so I did start her on the Bumex as noted above. - Time Time Spent with patient: 25-34 minutes
[2018-05-20] MEDS ORDERED: BUMETANIDE INJ/PF 1 MG/4 ML SDV IV ONE (19:10)
[2018-05-20] MEDS ORDERED: BUMETANIDE INJ/PF 1 MG/4 ML SDV ONE (19:24)
[2018-05-20] MEDS: LEVALBUTEROL HCL NEB 1.25 MG/3 ML AMPUL NEB SCH (19:54)
[2018-05-20] MEDS: BUDESONIDE NEB 0.5 MG/2 ML AMPUL NEB SCH (19:54)
[2018-05-20] MEDS: ATORVASTATIN CALCIUM 20 MG TABLET PO SCH (21:18)
[2018-05-20] MEDS: CLONIDINE HCL 0.1 MG TABLET PO SCH (21:18)
[2018-05-20] MEDS ORDERED: METHYLPREDNISOLONE INJ 125 MG/2 ML SDV IV SCH (22:00)
[2018-05-20] MEDS ORDERED: FLUTICASONE/SALMETEROL DISKUS 250-50 MCG/DOSE IH SCH (22:00)
--- NOTE | 2018-05-20 22:04 | EKG REPORT ---
SEVERITY:- ABNORMAL ECG - SINUS TACHYCARDIA RIGHT BUNDLE BRANCH BLOCK : Confirmed by: Nona Flores MD 20-May-2018 22:03:39
[2018-05-21] MEDS: LEVALBUTEROL HCL NEB 1.25 MG/3 ML AMPUL NEB SCH ×4 (01:17→20:05)
[2018-05-21] MEDS: METHYLPREDNISOLONE INJ 125 MG/2 ML SDV IV SCH ×3 (05:15→17:03)
[2018-05-21] MEDS: LEVOTHYROXINE SODIUM 0.1 MG TABLET PO SCH (05:15)
[2018-05-21] MEDS: HYDRALAZINE HCL 25 MG TABLET PO SCH (05:16)
[2018-05-21 06:02] LABS: HEMATOCRIT 32.7 % (36.0-47.0); HEMOGLOBIN 10.9 g/dL (12.0-15.5); MEAN CORPUSCULAR HEMOGLOBIN 30.4 pg (27.0-33.4); MEAN CORPUSCULAR HGB CONC 33.5 g/dL (32.0-36.0); MEAN CORPUSCULAR VOLUME 91 fl (80-97); PLATELET COUNT 238 10^3/uL (150-450); RED CELL DISTRIBUTION WIDTH 14.2 % (11.5-14.0); WHITE BLOOD COUNT 18.5 10^3/uL (4.0-10.5)
[2018-05-21 06:27] LABS: ALBUMIN 3.4 g/dL (3.5-5.0); ANION GAP 15 (5-19); BLOOD UREA NITROGEN 60 mg/dL (7-20); CALCIUM 8.5 mg/dL (8.4-10.2); CARBON DIOXIDE 25 mmol/L (22-30); CHLORIDE 100 mmol/L (98-107); GLUCOSE 134 mg/dL (75-110); PHOSPHORUS 3.9 mg/dL (2.5-4.5); POTASSIUM 3.8 mmol/L (3.6-5.0); SODIUM 140.1 mmol/L (137-145)
[2018-05-21] MEDS ORDERED: HYDRALAZINE HCL 25 MG TABLET PO ONE (07:45)
[2018-05-21] MEDS: BUDESONIDE NEB 0.5 MG/2 ML AMPUL NEB SCH ×2 (08:08→20:05)
[2018-05-21] MEDS: COLCHICINE 0.6 MG TABLET PO SCH ×2 (09:31→21:12)
[2018-05-21] MEDS: FEBUXOSTAT 40 MG TABLET PO SCH (09:32)
[2018-05-21] MEDS: TOLTERODINE TARTRATE 1 MG TABLET PO SCH ×2 (09:32→21:12)
[2018-05-21] MEDS: LEVOFLOXACIN 500 MG TABLET PO SCH (09:32)
[2018-05-21] MEDS: GUAIFENESIN 600 MG TABLET.SA PO SCH ×2 (09:32→21:11)
[2018-05-21] MEDS: ESCITALOPRAM OXALATE 10 MG TABLET PO SCH (09:32)
[2018-05-21] MEDS: ASPIRIN 81 MG TABLET, ENT COATED PO SCH (09:32)
[2018-05-21] MEDS: TIOTROPIUM BROMIDE DPI 5 CAP/KIT (18 MCG/CAP) IH SCH (09:33)
[2018-05-21] MEDS: BUMETANIDE INJ/PF 1 MG/4 ML SDV IV SCH (09:34)
[2018-05-21] MEDS: ENOXAPARIN SODIUM INJ 30 MG/0.3 ML DISP.SYRIN SUBCUT SCH (09:34)
[2018-05-21] MEDS: CEFEPIME 2 GM/D5W RTU 2 GM/50 ML RTUPB IV SCH ×2 (09:34→21:11)
[2018-05-21] MEDS: HYDRALAZINE HCL 10 MG TABLET PO SCH ×3 (10:30→21:14)
[2018-05-21] MEDS ORDERED: HYDRALAZINE HCL 25 MG TABLET PO SCH (14:00)
[2018-05-21] MEDS: ATORVASTATIN CALCIUM 20 MG TABLET PO SCH (21:11)
[2018-05-21] MEDS: CLONIDINE HCL 0.1 MG TABLET PO SCH (21:12)
[2018-05-21] MEDS: LORAZEPAM INJ 2 MG/1 ML VIAL IV PRN (21:29)
[2018-05-22] MEDS: METHYLPREDNISOLONE INJ 125 MG/2 ML SDV IV SCH ×2 (00:07→05:30)
[2018-05-22] MEDS: LEVALBUTEROL HCL NEB 1.25 MG/3 ML AMPUL NEB SCH ×4 (02:11→20:41)
[2018-05-22] MEDS: LEVOTHYROXINE SODIUM 0.1 MG TABLET PO SCH (05:31)
[2018-05-22] MEDS: HYDRALAZINE HCL 10 MG TABLET PO SCH (05:31)
[2018-05-22] MEDS: BUDESONIDE NEB 0.5 MG/2 ML AMPUL NEB SCH ×2 (08:01→20:41)
[2018-05-22 09:13] LABS: HEMATOCRIT 34.9 % (36.0-47.0); HEMOGLOBIN 12.1 g/dL (12.0-15.5); MEAN CORPUSCULAR HEMOGLOBIN 31.1 pg (27.0-33.4); MEAN CORPUSCULAR HGB CONC 34.5 g/dL (32.0-36.0); MEAN CORPUSCULAR VOLUME 90 fl (80-97); PLATELET COUNT 280 10^3/uL (150-450); RED BLOOD COUNT 3.87 10^6/uL (3.72-5.28); RED CELL DISTRIBUTION WIDTH 14.3 % (11.5-14.0); WHITE BLOOD COUNT 22.4 10^3/uL (4.0-10.5)
[2018-05-22 09:33] LABS: ANION GAP 15 (5-19); BLOOD UREA NITROGEN 68 mg/dL (7-20); CALCIUM 9.1 mg/dL (8.4-10.2); CARBON DIOXIDE 25 mmol/L (22-30); CHLORIDE 102 mmol/L (98-107); GLUCOSE 136 mg/dL (75-110); POTASSIUM 3.6 mmol/L (3.6-5.0); SODIUM 141.9 mmol/L (137-145)
[2018-05-22] MEDS: LEVOFLOXACIN 500 MG TABLET PO SCH (09:33)
[2018-05-22] MEDS: ASPIRIN 81 MG TABLET, ENT COATED PO SCH (09:33)
[2018-05-22] MEDS: BUMETANIDE INJ/PF 1 MG/4 ML SDV IV SCH (09:33)
[2018-05-22] MEDS: TOLTERODINE TARTRATE 1 MG TABLET PO SCH ×2 (09:33→21:20)
[2018-05-22] MEDS: COLCHICINE 0.6 MG TABLET PO SCH ×2 (09:33→21:20)
[2018-05-22] MEDS: GUAIFENESIN 600 MG TABLET.SA PO SCH ×2 (09:34→21:20)
[2018-05-22] MEDS: CEFEPIME 2 GM/D5W RTU 2 GM/50 ML RTUPB IV SCH ×2 (09:34→21:21)
[2018-05-22] MEDS: ESCITALOPRAM OXALATE 10 MG TABLET PO SCH (09:34)
[2018-05-22] MEDS: FEBUXOSTAT 40 MG TABLET PO SCH (09:34)
[2018-05-22 09:38] LABS: ABSOLUTE LYMPHOCYTES# (MANUAL) 0.9 10^3/uL (0.5-4.7); ABSOLUTE NEUTROPHILS# (MANUAL) 21.5 10^3/uL (1.7-8.2); BASOPHILS % (MANUAL) 0 % (0-2); EOSINOPHILS % (MANUAL) 0 % (0-6); LYMPHOCYTES % (MANUAL) 4 % (13-45); MONOCYTES % (MANUAL) 0 % (3-13); SEGMENTED NEUTROPHILS % (MAN) 96 % (42-78); TOTAL CELLS COUNTED 100
[2018-05-22 09:39] LABS: PLATELET COMMENT ADEQUATE; RBC MORPHOLOGY COMMENT NORMO-CYTIC/CHROMIC
[2018-05-22] MEDS: ENOXAPARIN SODIUM INJ 30 MG/0.3 ML DISP.SYRIN SUBCUT SCH (09:44)
[2018-05-22] MEDS ORDERED: HYDRALAZINE HCL 10 MG TABLET PO SCH (10:00)
[2018-05-22] MEDS: TIOTROPIUM BROMIDE DPI 5 CAP/KIT (18 MCG/CAP) IH SCH (10:22)
[2018-05-22] MEDS: HYDRALAZINE HCL 50 MG TABLET PO SCH ×2 (10:22→21:20)
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
[2018-05-22] MEDS ORDERED: MAG HYDROX/AL HYDROX/SIMETH SUSP 30 ML UDCUP PO ONE (11:15)
[2018-05-22] MEDS ORDERED: LIDOCAINE 2% VISCOUS SOLN 20 ML UDCUP PO ONE (11:15)
[2018-05-22] MEDS ORDERED: METOCLOPRAMIDE HCL ORAL SOLN 10 MG/10 ML UDCUP PO ONE (11:15)
[2018-05-22] MEDS ORDERED: METHYLPREDNISOLONE INJ 125 MG/2 ML SDV IV SCH (14:00)
[2018-05-22] MEDS: METHYLPREDNISOLONE INJ 40 MG/1 ML SDV IV SCH ×2 (14:23→21:19)
[2018-05-22] MEDS: LORAZEPAM INJ 2 MG/1 ML VIAL IV PRN (21:19)
[2018-05-22] MEDS: ATORVASTATIN CALCIUM 20 MG TABLET PO SCH (21:19)
[2018-05-22] MEDS: CLONIDINE HCL 0.1 MG TABLET PO SCH (21:20)
[2018-05-23] MEDS: LEVALBUTEROL HCL NEB 1.25 MG/3 ML AMPUL NEB SCH ×4 (02:29→20:42)
[2018-05-23] MEDS: METHYLPREDNISOLONE INJ 40 MG/1 ML SDV IV SCH (05:16)
[2018-05-23] MEDS: LEVOTHYROXINE SODIUM 0.1 MG TABLET PO SCH (05:16)
--- NOTE | 2018-05-23 08:06 | PDOC PROGRESS REPORT ---
Subjective Progress Note for:: 05/23/18 Subjective:: The patient states to feel much better. He denies any shortness of breath or cough. She wants to go home. She is still on IV steroids and antibiotics Reason For Visit: PNEUMONIA,COPD EXACERBATION,ACUTE GOUT, Physical Exam Vital Signs: Temp Pulse Resp BP Pulse Ox 98.5 F 90 20 131/44 H 95 05/23/18 04:25 05/23/18 07:00 05/23/18 04:25 05/23/18 04:25 05/23/18 04:25 Intake & Output 05/22/18 05/23/18 05/24/18 06:59 06:59 06:59 Intake Total 788 1262 Balance 788 1262 Weight 91.6 kg 90.9 kg General appearance: PRESENT: mild distress Head exam: PRESENT: atraumatic Eye exam: PRESENT: conjunctiva pink Mouth exam: PRESENT: dry mucosa Neck exam: ABSENT: carotid bruit, JVD Respiratory exam: PRESENT: rhonchi. ABSENT: wheezes Cardiovascular exam: PRESENT: RRR, +S1, +S2 GI/Abdominal exam: PRESENT: normal bowel sounds, soft Extremities exam: PRESENT: full ROM Musculoskeletal exam: PRESENT: ambulatory Neurological exam: PRESENT: alert, awake Results Laboratory Results: 05/22/18 08:45 05/22/18 08:45 05/22/18 05/22/18 08:45 08:45 WBC 22.4 H RBC 3.87 Hgb 12.1 Hct 34.9 L MCV 90 MCH 31.1 MCHC 34.5 RDW 14.3 H Plt Count 280 Seg Neutrophils % Not Reportable Lymphocytes % Not Reportable Monocytes % Not Reportable Eosinophils % Not Reportable Basophils % Not Reportable Absolute Neutrophils Not Reportable Absolute Lymphocytes Not Reportable Absolute Monocytes Not Reportable Absolute Eosinophils Not Reportable Absolute Basophils Not Reportable Sodium 141.9 Potassium 3.6 Chloride 102 Carbon Dioxide 25 Anion Gap 15 BUN 68 H Creatinine 1.41 H Est GFR ( Amer) 44 L Est GFR (Non-Af Amer) 36 L Glucose 136 H Calcium 9.1 Magnesium 2.1 Impressions: Chest X-Ray 05/16/18 16:36 IMPRESSION: Left basilar densities as noted above Assessment & Plan - Diagnosis (1) Pneumonia Qualifiers: Pneumonia type: due to unspecified organism Laterality: left Lung location: lower lobe of lung Qualified Code(s): J18.1 - Lobar pneumonia, unspecified organism Is this a current diagnosis for this admission?: Yes Plan: Improved will stop the IV antibiotics continue Levaquin for 5 more days (2) COPD with acute exacerbation Is this a current diagnosis for this admission?: Yes Plan: Improved will stop the IV steroids and placed on prednisone (3) Acute gout Qualifiers: Gout site: foot Laterality: right Is this a current diagnosis for this admission?: Yes Plan: Resolved continue colchicine and [place] (4) Hypertension Is this a current diagnosis for this admission?: Yes Plan: Continue current treatment (5) SVT (supraventricular tachycardia) Is this a current diagnosis for this admission?: Yes Plan: Continue current treatment (6) Hypothyroid Is this a current diagnosis for this admission?: Yes Plan: Continue current treatment
[2018-05-23] MEDS: TOLTERODINE TARTRATE 1 MG TABLET PO SCH ×2 (09:49→21:11)
[2018-05-23] MEDS: FUROSEMIDE 40 MG TABLET PO SCH (09:50)
[2018-05-23] MEDS: FEBUXOSTAT 40 MG TABLET PO SCH (09:50)
[2018-05-23] MEDS: HYDRALAZINE HCL 50 MG TABLET PO SCH ×2 (09:50→21:11)
[2018-05-23] MEDS: COLCHICINE 0.6 MG TABLET PO SCH ×2 (09:50→21:11)
[2018-05-23] MEDS: GUAIFENESIN 600 MG TABLET.SA PO SCH ×2 (09:51→21:10)
[2018-05-23] MEDS: LEVOFLOXACIN 500 MG TABLET PO SCH (09:51)
[2018-05-23] MEDS: PREDNISONE 20 MG TABLET PO SCH ×2 (09:51→17:07)
[2018-05-23] MEDS: ESCITALOPRAM OXALATE 10 MG TABLET PO SCH (09:51)
[2018-05-23] MEDS: ASPIRIN 81 MG TABLET, ENT COATED PO SCH (09:51)
[2018-05-23] MEDS: TIOTROPIUM BROMIDE DPI 5 CAP/KIT (18 MCG/CAP) IH SCH (09:52)
[2018-05-23] MEDS: ENOXAPARIN SODIUM INJ 30 MG/0.3 ML DISP.SYRIN SUBCUT SCH (09:53)
[2018-05-23] MEDS: FLUTICASONE/SALMETEROL DISKUS 250-50 MCG/DOSE IH SCH ×2 (09:55→21:11)
[2018-05-23] MEDS: ATORVASTATIN CALCIUM 20 MG TABLET PO SCH (21:10)
[2018-05-23] MEDS: CLONIDINE HCL 0.1 MG TABLET PO SCH (21:11)
[2018-05-24] MEDS: LEVALBUTEROL HCL NEB 1.25 MG/3 ML AMPUL NEB SCH ×2 (02:10→07:54)
[2018-05-24] MEDS: LEVOTHYROXINE SODIUM 0.1 MG TABLET PO SCH (05:50)
--- NOTE | 2018-05-24 08:45 | PDOC DISCHARGE SUMMARY ---
General - Admit/Disc Date/PCP Admission Date/Primary Care Provider: 05/16/18 13:22 FARHAD DOWNS MD Discharge Date: 05/24/18 - Discharge Diagnosis (1) Pneumonia Is this a current diagnosis for this admission?: Yes Summary: Continue Levaquin for 5 more days (2) COPD with acute exacerbation Is this a current diagnosis for this admission?: Yes Summary: Continue prednisone (3) Acute gout Is this a current diagnosis for this admission?: Yes Summary: Continue colchicine and [place] (4) Hypertension Is this a current diagnosis for this admission?: Yes (5) SVT (supraventricular tachycardia) Is this a current diagnosis for this admission?: Yes (6) Hypothyroid Is this a current diagnosis for this admission?: Yes - Additional Information Discharge Activity: Activity As Tolerated Prescriptions: Levofloxacin [Levaquin 500 mg Tablet] 500 mg PO DAILY #5 tablet Prednisone [Deltasone 20 mg Tablet] 10 mg PO BID #90 tablet Home Medications: Albuterol Sulfate [Proair HFA] 2 puff IH Q4HP PRN 05/16/18 Aspirin [Aspirin EC] 81 mg PO DAILY 05/16/18 Clonidine HCl [Catapres 0.1 mg Tablet] 0.1 mg PO QHS 05/16/18 Ergocalciferol (Vitamin D2) [Vitamin D2] 50,000 unit PO [id number] 05/16/18 Escitalopram Oxalate [Lexapro 10 mg Tablet] 10 mg PO DAILY 05/16/18 Febuxostat [Uloric 40 mg Tablet] 40 mg PO DAILY 05/16/18 Fluticasone/Salmeterol [Advair 250-50 Diskus 28 dose] 1 puff IH Q12 05/16/18 Levalbuterol HCl [Xopenex Neb 0.63 mg/3 ml Ampul] 0.63 mg NEB RTQ6HP PRN Levothyroxine Sodium [Synthroid] 100 mcg PO Q6AM 05/16/18 Rabeprazole Sodium [Aciphex] 20 mg PO BID 05/16/18 Rosuvastatin Calcium [Crestor 10 mg Tablet] 10 mg PO QHS 05/16/18 Telmisartan [Micardis 40 mg Tablet] 40 mg PO DAILY 05/16/18 Tiotropium [place] [Spiriva Handihaler 5 Cap/Kit (18 Mcg/Cap)] 1 cap IH DAILY Tolterodine Tartrate [Tolterodine Tartrate ER] 4 mg PO DAILY 05/16/18 Zolpidem Tartrate [Ambien] 10 mg PO HSP PRN 05/16/18 Colchicine [Colcrys 0.6 mg Tablet] 0.6 mg PO Q12 tablet 05/24/18 Fluticasone/Salmeterol [Advair 250-50 Diskus 14 Dose/Diskus] 1 inh IH Q12 inhaler 05/24/18 Furosemide [Lasix 40 mg Tablet] 40 mg PO DAILY #0 05/24/18 Levalbuterol HCl [Xopenex Neb 1.25 mg/3 ml Ampul] 1.25 mg NEB RTQ3HP PRN vial.neb 05/24/18 Levalbuterol HCl [Xopenex Neb 1.25 mg/3 ml Ampul] 1.25 mg NEB RTQ6 vial.neb 02/01 Levofloxacin [Levaquin 500 mg Tablet] 500 mg PO DAILY #5 tablet 05/24/18 Prednisone [Deltasone 20 mg Tablet] 10 mg PO BID #90 tablet 05/24/18 History of Present Illness History of Present Illness: ALEJANDRA APPIAH is a 78 year old female Hospital Course Hospital Course: The patient was admitted directly from the office with an acute COPD exacerbation and pneumonia. She also had an acute gout. She was started on appropriate medications. She did quite well. She was slowly weaned off the steroids with significant improvement in her symptomatology. On the day of discharge she appeared comfortable in no acute distress Physical Exam Vital Signs: Temp Pulse Resp BP Pulse Ox 98.5 F 90 12 155/54 H 95 05/24/18 04:02 05/24/18 07:55 05/24/18 07:55 05/24/18 04:02 05/24/18 07:55 Intake & Output 05/23/18 05/24/18 05/25/18 06:59 06:59 06:59 Intake Total 1262 485 Output Total 1500 Balance 1262 -1015 Weight 90.9 kg 90 kg General appearance: PRESENT: no acute distress Head exam: PRESENT: atraumatic Eye exam: PRESENT: conjunctiva pink Neck exam: ABSENT: carotid bruit, JVD Respiratory exam: PRESENT: rhonchi. ABSENT: rales, wheezes Cardiovascular exam: PRESENT: RRR, +S1, +S2 GI/Abdominal exam: PRESENT: normal bowel sounds, soft Results Laboratory Results: 05/22/18 08:45 05/22/18 08:45 Impressions: Chest X-Ray 05/16/18 16:36 IMPRESSION: Left basilar densities as noted above Qualifiers - * PATIENT BEING DISCHARGED WITH ANY OF THE FOLLOWING DIAGNOSIS: No
[2018-05-24] MEDS: COLCHICINE 0.6 MG TABLET PO SCH (09:27)
[2018-05-24] MEDS: HYDRALAZINE HCL 50 MG TABLET PO SCH (09:28)
[2018-05-24] MEDS: FUROSEMIDE 40 MG TABLET PO SCH (09:28)
[2018-05-24] MEDS: ESCITALOPRAM OXALATE 10 MG TABLET PO SCH (09:28)
[2018-05-24] MEDS: GUAIFENESIN 600 MG TABLET.SA PO SCH (09:28)
[2018-05-24] MEDS: FLUTICASONE/SALMETEROL DISKUS 250-50 MCG/DOSE IH SCH (09:29)
[2018-05-24] MEDS: PREDNISONE 20 MG TABLET PO SCH (09:29)
[2018-05-24] MEDS: ASPIRIN 81 MG TABLET, ENT COATED PO SCH (09:29)
[2018-05-24] MEDS: TIOTROPIUM BROMIDE DPI 5 CAP/KIT (18 MCG/CAP) IH SCH (09:30)
[2018-05-24] MEDS: TOLTERODINE TARTRATE 1 MG TABLET PO SCH (09:31)
[2018-05-24] MEDS: FEBUXOSTAT 40 MG TABLET PO SCH (09:31)
[2018-05-24] MEDS: ENOXAPARIN SODIUM INJ 30 MG/0.3 ML DISP.SYRIN SUBCUT SCH (09:33)
[2018-05-24 10:41] VITALS: BP 139/54
[2018-05-29] MEDS ORDERED: ERGOCALCIFEROL (VITAMIN D2) 50000 UNIT (1.25 MG) CAPSULE PO SCH (10:00)
== END 2018-05-24 11:00 | disposition home or self-care (01) | DRG 194 ==
LOC: 3N 13:22 → 3S 05-21 15:36
PROVIDERS: ADMIT Internal Medicine; ATTEND Internal Medicine
DX: J18.1 Lobar pneumonia, unspecified organism (principal); J44.1 Chronic obstructive pulmonary disease with (acute) exacerbation; J44.0 Chronic obstructive pulmonary disease with (acute) lower respiratory infection; I47.1 Supraventricular tachycardia; I12.9 Hypertensive chronic kidney disease with stage 1 through stage 4 chronic kidney disease, or unspecified chronic kidney disease; N18.9 Chronic kidney disease, unspecified; E78.5 Hyperlipidemia, unspecified; M10.9 Gout, unspecified; E03.9 Hypothyroidism, unspecified; K21.9 Gastro-esophageal reflux disease without esophagitis; M19.90 Unspecified osteoarthritis, unspecified site; Z79.899 Other long term (current) drug therapy; Z90.710 Acquired absence of both cervix and uterus; Z87.891 Personal history of nicotine dependence
CPT/HCPCS: 36415; 36600; 71046; 80048; 80053; 80069; 82803; 83735; 85025; 85027; 87040; 87070; 87205; 93005; 93010; 94640; 94799; J0692; J1650; J1940; J1956; J2060; J2920; J2930; J3490; J7512; J7614; J7620

== ENCOUNTER → 2018-07-17 | Outpatient (CLI) | payer MEDICARE, OTHER ==
[2018-07-17 08:20] LABS: HEMATOCRIT 31.2 % (36.0-47.0); HEMOGLOBIN 10.7 g/dL (12.0-15.5); MEAN CORPUSCULAR HEMOGLOBIN 31.1 pg (27.0-33.4); MEAN CORPUSCULAR HGB CONC 34.2 g/dL (32.0-36.0); MEAN CORPUSCULAR VOLUME 91 fl (80-97); PLATELET COUNT 217 10^3/uL (150-450); RED BLOOD COUNT 3.44 10^6/uL (3.72-5.28); RED CELL DISTRIBUTION WIDTH 16.9 % (11.5-14.0); WHITE BLOOD COUNT 5.3 10^3/uL (4.0-10.5)
[2018-07-17 08:23] LABS: APPEARANCE,URINE SLIGHTLY-CLOUDY; BILIRUBIN,URINE NEGATIVE (NEGATIVE); COLOR,URINE YELLOW; GLUCOSE, URINE NEGATIVE (NEGATIVE); KETONES,URINE NEGATIVE (NEGATIVE); LEUKOCYTE ESTERASE,URINE NEGATIVE (NEGATIVE); NITRITE,URINE NEGATIVE (NEGATIVE); PROTEIN,URINE NEGATIVE (NEGATIVE); URINE SPECIFIC GRAVITY 1.013; UROBILINOGEN,URINE NEGATIVE mg/dL (<2.0)
[2018-07-17 08:45] LABS: ANION GAP 9 (5-19); BLOOD UREA NITROGEN 38 mg/dL (7-20); CALCIUM 9.4 mg/dL (8.4-10.2); CARBON DIOXIDE 30 mmol/L (22-30); CHLORIDE 101 mmol/L (98-107); GLUCOSE 112 mg/dL (75-110); POTASSIUM 4.6 mmol/L (3.6-5.0); SODIUM 139.6 mmol/L (137-145)
== END ==
LOC: OD 07:06
PROVIDERS: ATTEND Internal Medicine Nephrology
DX: I12.9 Hypertensive chronic kidney disease with stage 1 through stage 4 chronic kidney disease, or unspecified chronic kidney disease (principal); N18.3 Chronic kidney disease, stage 3 (moderate); E87.5 Hyperkalemia; R60.9 Edema, unspecified
CPT/HCPCS: 36415; 80048; 81001; 85027

== ENCOUNTER 2018-10-24 14:15 | Inpatient (IN) | payer MEDICARE, OTHER ==
--- NOTE | 2018-10-24 17:14 | PDOC H&P ---
History of Present Illness Admission Date/PCP: 10/24/18 14:15 Reji DAVIDSON MD Patient complains of: Shortness of breath. nocturnal dyspnea. Orthopnea. Cough History of Present Illness: ALEJANDRA APPIAH is a 78 year old female Past Medical History Cardiac Medical History: Reports: Hyperlipidema, Hypertension - MICARDIS Denies: Myocardial Infarction Pulmonary Medical History: Reports: Bronchitis, Chronic Obstructive Pulmonary Disease (COPD), Pneumonia Denies: Tuberculosis Neurological Medical History: Denies: Seizures Endocrine Medical History: Reports: Hypothyroidism Renal/ Medical History: Reports: Chronic Kidney Disease GI Medical History: Reports: Gastroesophageal Reflux Disease Denies: Hepatitis, Hiatal Hernia Musculoskeltal Medical History: Reports: Arthritis Psychiatric Medical History: Denies: Depression Hematology: Denies: Anemia, Sickle Cell Disease Past Surgical History Past Surgical History: Reports: Appendectomy, Hysterectomy, Orthopedic Surgery - right and left knee replacement, right RCR, Tonsillectomy Denies: Amputation, Mastectomy, Pacemaker Social History Smoking Status: Former Smoker Number of Years Smokin Frequency of Alcohol Use: None Hx Recreational Drug Use: No Drugs: None Hx Prescription Drug Abuse: No Family History Family History: Reviewed & Not Pertinent Parental Family History Reviewed: Yes Children Family History Reviewed: Yes Sibling(s) Family History Reviewed.: Yes Medication/Allergy Allergies/Adverse Reactions: homatropine [From Hycodan (with homatropin)] Allergy (Unverified 10/24/18 14:51) hydrocodone [From Hycodan (with homatropin)] Allergy (Unverified 10/24/18 14:51) Antivirals Allergy (Uncoded 10/24/18 14:51) Review of Systems All systems: as per PMH Physical Exam Vital Signs: Temp Pulse Resp BP Pulse Ox 98.4 F 82 24 H 166/64 H 98 10/24/18 15:00 10/24/18 15:00 10/24/18 15:00 10/24/18 15:00 10/24/18 15:00 Intake & Output 10/23/18 10/24/18 10/25/18 06:59 06:59 06:59 Weight 95.2 kg General appearance: PRESENT: severe distress Eye exam: PRESENT: conjunctival injection Mouth exam: PRESENT: moist Neck exam: ABSENT: carotid bruit, JVD Respiratory exam: PRESENT: decreased breath sounds, prolonged expiratory phas, rales, rhonchi, wheezes Cardiovascular exam: PRESENT: RRR, +S1, +S2 GI/Abdominal exam: PRESENT: normal bowel sounds, soft Extremities exam: PRESENT: full ROM, pedal edema Musculoskeletal exam: PRESENT: ambulatory Neurological exam: PRESENT: alert, awake, oriented to person, oriented to place, oriented to time, CN II-XII grossly intact Assessment & Plan - Diagnosis (1) Acute on chronic congestive heart failure Qualifiers: Heart failure type: systolic Qualified Code(s): I50.23 - Acute on chronic systolic (congestive) heart failure Is this a current diagnosis for this admission?: Yes Plan: We will obtain labs. Will obtain echo EKG cardiology consult will start diuretics and probably nitroglycerin drip (2) Chronic kidney disease Qualifiers: Chronic kidney disease stage: stage 3 (moderate) Qualified Code(s): N18.3 - Chronic kidney disease, stage 3 (moderate) Is this a current diagnosis for this admission?: Yes Plan: We will consider diuretics and nephrology consultation after the labs (3) Fluid overload Qualifiers: Hypervolemia type: unspecified Qualified Code(s): E87.70 - Fluid overload, unspecified Is this a current diagnosis for this admission?: Yes Plan: We will consider diuretics (4) COPD with acute exacerbation Is this a current diagnosis for this admission?: Yes Plan: We will obtain cultures chest x-ray start IV steroids and nebulization treatment (5) Hypertension Qualifiers: Hypertension type: essential hypertension Qualified Code(s): I10 - Essential (primary) hypertension Is this a current diagnosis for this admission?: Yes Plan: Continue current medications (6) Hypothyroid Qualifiers: Hypothyroidism type: acquired Qualified Code(s): E03.9 - Hypothyroidism, unspecified Is this a current diagnosis for this admission?: Yes Plan: Continue current medications (7) SVT (supraventricular tachycardia) Is this a current diagnosis for this admission?: Yes Plan: We will consider treatments after the EKG and echocardiogram
[2018-10-24 17:36] LABS: ABSOLUTE EOSINOPHILS # (AUTO) 0.1 10^3/uL (0.0-0.6); ABSOLUTE LYMPHOCYTES (AUTO) 2.1 10^3/uL (0.5-4.7); ABSOLUTE MONOCYTES (AUTO) 0.8 10^3/uL (0.1-1.4); ABSOLUTE NEUT (AUTO) 4.5 10^3/uL (1.7-8.2); BASOPHILS % (AUTO) 0.3 % (0-2); EOSINOPHILS % (AUTO) 1.7 % (0-6); HEMATOCRIT 31.5 % (36.0-47.0); HEMOGLOBIN 10.7 g/dL (12.0-15.5); LYMPHOCYTES % (AUTO) 27.6 % (13-45); MEAN CORPUSCULAR HEMOGLOBIN 31.3 pg (27.0-33.4); MEAN CORPUSCULAR HGB CONC 34.1 g/dL (32.0-36.0); MEAN CORPUSCULAR VOLUME 92 fl (80-97); MONOCYTES % (AUTO) 10.7 % (3-13); PLATELET COUNT 128 10^3/uL (150-450); RED BLOOD COUNT 3.42 10^6/uL (3.72-5.28); SEGMENTED NEUTROPHILS % (AUTO) 59.7 % (42-78); TOTAL CELLS COUNTED % (AUTO) 100 %; WHITE BLOOD COUNT 7.5 10^3/uL (4.0-10.5)
[2018-10-24] MEDS: METHYLPREDNISOLONE INJ 125 MG/2 ML SDV IV SCH ×2 (18:00→23:28)
[2018-10-24 18:07] LABS: CREATINE KINASE MB 0.74 ng/mL (<4.55); NT PRO BNP 705 pg/mL (<450)
[2018-10-24 18:09] LABS: TROPONIN I < 0.012 ng/mL
--- NOTE | 2018-10-24 18:32 | RADIOLOGY REPORT (SQ) ---
EXAM DESCRIPTION: CHEST 2 VIEWS COMPLETED DATE/TIME: 10/24/2018 6:16 pm REASON FOR STUDY: chf COMPARISON: 05/16/2018 EXAM PARAMETERS: NUMBER OF VIEWS: two views TECHNIQUE: Digital Frontal and Lateral radiographic views of the chest acquired. RADIATION DOSE: NA LIMITATIONS: none FINDINGS: LUNGS AND PLEURA: Pulmonary vascular congestion. Cannot exclude mild pulmonary edema. Ir regular opacification the medial right base. MEDIASTINUM AND HILAR STRUCTURES: No masses or contour abnormalities. HEART AND VASCULAR STRUCTURES: Cardiomegaly. BONES: No acute findings. HARDWARE: None in the chest. OTHER: No other significant finding. IMPRESSION: Cardiomegaly. Mild pulmonary edema. Cannot exclude a mass or nodule in the medial righ t base. TECHNICAL DOCUMENTATION: JOB ID: [id number] [employer]- All Rights Reserved Reading location - IP/workstation name: [email or web address]
[2018-10-24 19:05] LABS: ARTERIAL BLOOD BASE EXCESS 2.8 mmol/L; ARTERIAL BLOOD FIO2 2L; ARTERIAL BLOOD H2CO3 1.33 mmol/L (1.05-1.35); ARTERIAL BLOOD HCO3 27.8 mmol/L (20-24); ARTERIAL BLOOD O2 SATURATION 95.3 % (94-98); ARTERIAL BLOOD PCO2 44.3 mmHg (35-45); ARTERIAL BLOOD PH 7.42 (7.35-7.45); ARTERIAL BLOOD PO2 75.8 mmHg (80-100); ARTERIAL BLOOD TOTAL CO2 29.2 mmol/L (21-25)
[2018-10-24] MEDS: LEVALBUTEROL HCL NEB 1.25 MG/3 ML AMPUL NEB PRN (19:37)
[2018-10-24 20:29] LABS: BLOOD UREA NITROGEN 38 mg/dL (7-20); CALCIUM 10.2 mg/dL (8.4-10.2); GLUCOSE 94 mg/dL (75-110); POTASSIUM 4.9 mmol/L (3.6-5.0)
[2018-10-24 20:40] LABS: CHLORIDE 104 mmol/L (98-107)
[2018-10-24 20:41] LABS: ANION GAP 4 (5-19); CARBON DIOXIDE 31 mmol/L (22-30); SODIUM 138.8 mmol/L (137-145)
[2018-10-24] MEDS ORDERED: (PENDING PHARMACY ID) (Fluticasone/Salmeterol 1 PUFF) IH SCH (22:15)
[2018-10-24] MEDS ORDERED: ZOLPIDEM TARTRATE 5 MG TABLET PO PRN (22:30)
[2018-10-24] MEDS ORDERED: FUROSEMIDE INJ/PF 40 MG/4 ML SDV IV ONE (22:40)
[2018-10-24] MEDS ORDERED: LEVOFLOXACIN 750 MG/D5W RTU 750 MG/150 ML RTUPB IV ONE (23:00)
[2018-10-25] MEDS ORDERED: CEFTRIAXONE 1 GM/D5W RTU 1 GM/50 ML RTUPB IV ONE
--- NOTE | 2018-10-25 00:04 | EKG REPORT ---
SEVERITY:- ABNORMAL ECG - SINUS RHYTHM MULTIPLE VENTRICULAR PREMATURE COMPLEXES RIGHT BUNDLE BRANCH BLOCK : Confirmed by: Radha Pineda 25-Oct-2018 00:03:45
[2018-10-25] MEDS: LEVALBUTEROL HCL NEB 1.25 MG/3 ML AMPUL NEB PRN ×5 (00:26→20:50)
[2018-10-25] MEDS: PANTOPRAZOLE SODIUM 40 MG TABLET.DR PO SCH ×2 (05:05→17:35)
[2018-10-25] MEDS: METHYLPREDNISOLONE INJ 125 MG/2 ML SDV IV SCH ×4 (05:05→23:12)
[2018-10-25] MEDS: LEVOTHYROXINE SODIUM 0.1 MG TABLET PO SCH (05:05)
[2018-10-25 05:53] LABS: ALANINE AMINOTRANSFERASE 29 U/L (9-52); ALBUMIN 3.6 g/dL (3.5-5.0); ALKALINE PHOSPHATASE 73 U/L (38-126); ANION GAP 14 (5-19); ASPARTATE AMINO TRANSFERASE 24 U/L (14-36); BILIRUBIN,DIRECT 0.3 mg/dL (0.0-0.4); BILIRUBIN,TOTAL 0.3 mg/dL (0.2-1.3); BLOOD UREA NITROGEN 36 mg/dL (7-20); CALCIUM 9.4 mg/dL (8.4-10.2); CARBON DIOXIDE 24 mmol/L (22-30); CHLORIDE 101 mmol/L (98-107); GLUCOSE 255 mg/dL (75-110); POTASSIUM 4.3 mmol/L (3.6-5.0); SODIUM 139.1 mmol/L (137-145); TOTAL PROTEIN 6.1 g/dL (6.3-8.2)
[2018-10-25] MEDS ORDERED: ERGOCALCIFEROL (VITAMIN D2) 50000 UNIT (1.25 MG) CAPSULE PO SCH (08:00)
--- NOTE | 2018-10-25 08:24 | PDOC PROGRESS REPORT ---
Subjective Progress Note for:: 10/25/18 Subjective:: The patient states to feel much better the patient states to feel much better. She states that she is much less short of breath. She is able to walk to the bathroom. She is still having some cough. Reason For Visit: HEART FAILURE,ACUTE CHRONIC SYSTOLIC CONGESTIVE Physical Exam Vital Signs: Temp Pulse Resp BP Pulse Ox 98.2 F 93 18 145/74 H 91 L 10/25/18 03:36 10/25/18 07:00 10/25/18 03:36 10/25/18 03:36 10/25/18 03:36 Intake & Output 10/24/18 10/25/18 10/26/18 06:59 06:59 06:59 Intake Total 935 Balance 935 Weight 97.5 kg General appearance: PRESENT: mild distress Eye exam: PRESENT: conjunctiva pink Mouth exam: PRESENT: moist Neck exam: ABSENT: carotid bruit, JVD Respiratory exam: PRESENT: crackles, rhonchi, wheezes Cardiovascular exam: PRESENT: RRR, +S1, +S2 GI/Abdominal exam: PRESENT: normal bowel sounds, soft Extremities exam: PRESENT: pedal edema Musculoskeletal exam: PRESENT: ambulatory Neurological exam: PRESENT: alert, awake Results Laboratory Results: 10/24/18 17:02 10/25/18 05:09 10/24/18 10/24/18 10/24/18 17:02 17:02 17:02 WBC 7.5 RBC 3.42 L Hgb 10.7 L Hct 31.5 L MCV 92 MCH 31.3 MCHC 34.1 RDW 15.0 H Plt Count 128 L Seg Neutrophils % 59.7 Lymphocytes % 27.6 Monocytes % 10.7 Eosinophils % 1.7 Basophils % 0.3 Absolute Neutrophils 4.5 Absolute Lymphocytes 2.1 Absolute Monocytes 0.8 Absolute Eosinophils 0.1 Absolute Basophils 0.0 Carbonic Acid HCO3/H2CO3 Ratio ABG pH ABG pCO2 ABG pO2 ABG HCO3 ABG O2 Saturation ABG Base Excess FiO2 Sodium Potassium Chloride Carbon Dioxide Anion Gap BUN Creatinine Est GFR ( Amer) Est GFR (Non-Af Amer) Glucose Calcium Magnesium 1.9 Total Bilirubin AST ALT Alkaline Phosphatase Total Protein Albumin TSH 2.15 10/24/18 10/24/18 10/25/18 17:02 18:45 05:09 WBC RBC Hgb Hct MCV MCH MCHC RDW Plt Count Seg Neutrophils % Lymphocytes % Monocytes % Eosinophils % Basophils % Absolute Neutrophils Absolute Lymphocytes Absolute Monocytes Absolute Eosinophils Absolute Basophils Carbonic Acid 1.33 HCO3/H2CO3 Ratio 20:1 ABG pH 7.42 ABG pCO2 44.3 ABG pO2 75.8 L ABG HCO3 27.8 H ABG O2 Saturation 95.3 ABG Base Excess 2.8 FiO2 2L Sodium 138.8 139.1 Potassium 4.9 4.3 Chloride 104 101 Carbon Dioxide 31 H 24 Anion Gap 4 L 14 BUN 38 H 36 H Creatinine 1.51 H 1.41 H Est GFR ( Amer) 40 L 44 L Est GFR (Non-Af Amer) 33 L 36 L Glucose 94 255 H Calcium 10.2 9.4 Magnesium Total Bilirubin 0.3 AST 24 ALT 29 Alkaline Phosphatase 73 Total Protein 6.1 L Albumin 3.6 TSH 10/24/18 10/24/18 17:02 17:02 Creatine Kinase 40 CK-MB (CK-2) 0.74 Troponin I < 0.012 NT-Pro-B Natriuret Pep 705 H Impressions: Chest X-Ray 10/24/18 16:59 IMPRESSION: Cardiomegaly. Mild pulmonary edema. Cannot exclude a mass or nodule in the medial right base. Assessment & Plan - Diagnosis (1) Acute on chronic congestive heart failure Qualifiers: Heart failure type: systolic Qualified Code(s): I50.23 - Acute on chronic systolic (congestive) heart failure Is this a current diagnosis for this admission?: Yes Plan: We will continue diuresis. We will restrict the fluid to 1000 p.o. Awaiting echocardiogram and cardiology consultation (2) Chronic kidney disease Qualifiers: Chronic kidney disease stage: stage 3 (moderate) Qualified Code(s): N18.3 - Chronic kidney disease, stage 3 (moderate) Is this a current diagnosis for this admission?: Yes Plan: We will continue with diuretics and recheck BUN and creatinine (3) Fluid overload Qualifiers: Hypervolemia type: unspecified Qualified Code(s): E87.70 - Fluid overload, unspecified Is this a current diagnosis for this admission?: Yes Plan: Continue diuresis strict MIMI's (4) COPD with acute exacerbation Is this a current diagnosis for this admission?: Yes Plan: We will reduce the dose of steroids (5) Hypertension Qualifiers: Hypertension type: essential hypertension Qualified Code(s): I10 - Essential (primary) hypertension Is this a current diagnosis for this admission?: Yes Plan: Continue current medications (6) Hypothyroid Qualifiers: Hypothyroidism type: acquired Qualified Code(s): E03.9 - Hypothyroidism, unspecified Is this a current diagnosis for this admission?: Yes Plan: Continue current medications (7) SVT (supraventricular tachycardia) Is this a current diagnosis for this admission?: Yes Plan: We will consider treatments after the EKG and echocardiogram
[2018-10-25] MEDS: DILTIAZEM HCL 120 MG CAP.SR.24H PO SCH ×2 (09:19→21:24)
[2018-10-25] MEDS: FUROSEMIDE INJ/PF 40 MG/4 ML SDV IV SCH ×2 (09:19→21:25)
[2018-10-25] MEDS: ASPIRIN 81 MG TABLET, ENT COATED PO SCH (09:20)
[2018-10-25] MEDS: TIOTROPIUM BROMIDE DPI 5 CAP/KIT (18 MCG/CAP) IH SCH (09:20)
[2018-10-25] MEDS: FLUTICASONE/VILANTEROL 200-25 MCG/DOSE IH SCH (09:21)
[2018-10-25] MEDS: DOCUSATE SODIUM 100 MG CAPSULE PO SCH ×2 (09:25→17:35)
[2018-10-25] MEDS ORDERED: ENOXAPARIN SODIUM INJ 40 MG/0.4 ML DISP.SYRIN SUBCUT SCH (10:00)
[2018-10-25] MEDS ORDERED: (PENDING PHARMACY ID) (Rabeprazole Sodium [Aciphex] 20 MG) PO SCH (10:00)
[2018-10-25] MEDS ORDERED: LEVOFLOXACIN 750 MG/D5W RTU 750 MG/150 ML RTUPB IV SCH (18:00)
[2018-10-25] MEDS ORDERED: CEFTRIAXONE 1 GM/D5W RTU 1 GM/50 ML RTUPB IV SCH (22:00)
[2018-10-26 05:48] LABS: ABSOLUTE LYMPHOCYTES (AUTO) 0.6 10^3/uL (0.5-4.7); ABSOLUTE MONOCYTES (AUTO) 0.3 10^3/uL (0.1-1.4); ABSOLUTE NEUT (AUTO) 9.1 10^3/uL (1.7-8.2); BASOPHILS % (AUTO) 0.2 % (0-2); EOSINOPHILS % (AUTO) 0.1 % (0-6); HEMATOCRIT 30.9 % (36.0-47.0); HEMOGLOBIN 10.7 g/dL (12.0-15.5); LYMPHOCYTES % (AUTO) 5.7 % (13-45); MEAN CORPUSCULAR HEMOGLOBIN 31.7 pg (27.0-33.4); MEAN CORPUSCULAR HGB CONC 34.8 g/dL (32.0-36.0); MEAN CORPUSCULAR VOLUME 91 fl (80-97); MONOCYTES % (AUTO) 2.6 % (3-13); PLATELET COUNT 152 10^3/uL (150-450); RED BLOOD COUNT 3.39 10^6/uL (3.72-5.28); RED CELL DISTRIBUTION WIDTH 15.1 % (11.5-14.0); SEGMENTED NEUTROPHILS % (AUTO) 91.4 % (42-78); TOTAL CELLS COUNTED % (AUTO) 100 %; WHITE BLOOD COUNT 9.9 10^3/uL (4.0-10.5)
[2018-10-26 06:03] LABS: ANION GAP 10 (5-19); CARBON DIOXIDE 31 mmol/L (22-30); CHLORIDE 99 mmol/L (98-107); GLUCOSE 183 mg/dL (75-110); POTASSIUM 4.1 mmol/L (3.6-5.0); SODIUM 139.5 mmol/L (137-145)
[2018-10-26] MEDS: METHYLPREDNISOLONE INJ 125 MG/2 ML SDV IV SCH ×4 (06:22→23:20)
[2018-10-26] MEDS: LEVOTHYROXINE SODIUM 0.1 MG TABLET PO SCH (06:23)
[2018-10-26] MEDS: PANTOPRAZOLE SODIUM 40 MG TABLET.DR PO SCH ×2 (06:23→17:15)
[2018-10-26 06:24] LABS: BLOOD UREA NITROGEN 58 mg/dL (7-20)
--- NOTE | 2018-10-26 08:16 | PDOC PROGRESS REPORT ---
Subjective Progress Note for:: 10/26/18 Subjective:: The patient states to feel much better. She was up all night urinating. She put out about 1400 mL's. Vital signs are stable. Her breathing has improved Reason For Visit: HEART FAILURE,ACUTE CHRONIC SYSTOLIC CONGESTIVE Physical Exam Vital Signs: Temp Pulse Resp BP Pulse Ox 97.9 F 113 H 20 105/49 L 94 10/26/18 03:55 10/26/18 07:00 10/26/18 03:55 10/26/18 03:55 10/26/18 03:55 Intake & Output 10/25/18 10/26/18 10/27/18 06:59 06:59 06:59 Intake Total 935 1899 Output Total 1350 Balance 935 549 Weight 97.5 kg 98.3 kg General appearance: PRESENT: mild distress Head exam: PRESENT: atraumatic Eye exam: PRESENT: conjunctiva pink Respiratory exam: PRESENT: crackles, rhonchi Cardiovascular exam: PRESENT: RRR, +S1, +S2 GI/Abdominal exam: PRESENT: normal bowel sounds, soft Extremities exam: ABSENT: pedal edema Musculoskeletal exam: PRESENT: ambulatory Neurological exam: PRESENT: alert, awake Results Laboratory Results: 10/26/18 04:56 10/26/18 04:56 10/26/18 10/26/18 04:56 04:56 WBC 9.9 RBC 3.39 L Hgb 10.7 L Hct 30.9 L MCV 91 MCH 31.7 MCHC 34.8 RDW 15.1 H Plt Count 152 Seg Neutrophils % 91.4 H Lymphocytes % 5.7 L Monocytes % 2.6 L Eosinophils % 0.1 Basophils % 0.2 Absolute Neutrophils 9.1 H Absolute Lymphocytes 0.6 Absolute Monocytes 0.3 Absolute Eosinophils 0.0 Absolute Basophils 0.0 Sodium 139.5 Potassium 4.1 Chloride 99 Carbon Dioxide 31 H Anion Gap 10 BUN 58 H D Creatinine 1.87 H Est GFR ( Amer) 32 L Est GFR (Non-Af Amer) 26 L Glucose 183 H Calcium 9.0 10/24/18 10/24/18 17:02 17:02 Creatine Kinase 40 CK-MB (CK-2) 0.74 Troponin I < 0.012 NT-Pro-B Natriuret Pep 705 H Impressions: Chest X-Ray 10/24/18 16:59 IMPRESSION: Cardiomegaly. Mild pulmonary edema. Cannot exclude a mass or nodule in the medial right base. Assessment & Plan - Diagnosis (1) Acute on chronic congestive heart failure Qualifiers: Heart failure type: systolic Qualified Code(s): I50.23 - Acute on chronic systolic (congestive) heart failure Is this a current diagnosis for this admission?: Yes Plan: Improved continue diuretics. Switch to p.o. Decrease the IV fluids (2) Chronic kidney disease Qualifiers: Chronic kidney disease stage: stage 3 (moderate) Qualified Code(s): N18.3 - Chronic kidney disease, stage 3 (moderate) Is this a current diagnosis for this admission?: Yes Plan: The creatinine has increased most probably to high doses of diuretics and over diureses (3) Fluid overload Qualifiers: Hypervolemia type: unspecified Qualified Code(s): E87.70 - Fluid overload, unspecified Is this a current diagnosis for this admission?: Yes Plan: Improved. Good urine output (4) COPD with acute exacerbation Is this a current diagnosis for this admission?: Yes (5) Hypertension Qualifiers: Hypertension type: essential hypertension Qualified Code(s): I10 - Essential (primary) hypertension Is this a current diagnosis for this admission?: Yes Plan: Continue current medications (6) Hypothyroid Qualifiers: Hypothyroidism type: acquired Qualified Code(s): E03.9 - Hypothyroidism, unspecified Is this a current diagnosis for this admission?: Yes Plan: Continue current medications (7) SVT (supraventricular tachycardia) Is this a current diagnosis for this admission?: Yes
[2018-10-26] MEDS: LEVALBUTEROL HCL NEB 1.25 MG/3 ML AMPUL NEB PRN ×3 (08:55→16:42)
--- NOTE | 2018-10-26 09:27 | RADIOLOGY REPORT (SQ) ---
EXAM DESCRIPTION: CT CHEST WITHOUT COMPLETED DATE/TIME: 10/26/2018 8:52 am REASON FOR STUDY: Pulmonary nodule COMPARISON: Chest radiograph, 10/24/2018 TECHNIQUE: CT scan performed of the chest without intravenous contrast. Images reviewed with lung, soft tissue and bone windows. Reconstructed coronal and sagittal MPR images reviewed. All images st ored on PACS. All CT scanners at this facility use dose modulation, iterative reconstruction, and/or weight based d osing when appropriate to reduce radiation dose to as low as reasonably achievable (ALARA). [facility]: Dose Right [facility]: CareDose [facility]: Dose Right [facility]: Teradose 4D [facility]: Smart L8 SmartLight RADIATION DOSE: CT Rad equipment meets quality standard of care and radiation dose reduction techniq ues were employed. CTDIvol: 15.8 mGy. DLP: 598 mGy-cm. mGy. LIMITATIONS: No technical limitations. FINDINGS: LUNGS AND PLEURA: There is bibasilar scarring or atelectasis. Minimal emphysema. There i s an irregular mixed solid and ground-glass nodule of the left upper lobe measuring 1.6 cm (series 4, image 32). HILAR AND MEDIASTINAL STRUCTURES: No identified masses or abnormal nodes. No obvious aneurysm. HEART AND VASCULAR STRUCTURES: Cardiomegaly. No aneurysm. No pericardial effusion. Left coronary a rtery calcifications. UPPER ABDOMEN: Benign fat containing left adrenal nodule. THYROID AND OTHER SOFT TISSUES: No masses. No adenopathy. BONES: No significant finding. HARDWARE: None in the chest. OTHER: No other significant findings. IMPRESSION: 1. No pulmonary mass or nodule to correspond to finding suspected on prior chest radiog raph. There is however a 1.6 cm mixed solid and ground-glass nodule of the left upper lobe, nonspeci fic. Recommend follow-up CT in 3 to 6 months to ensure stability or resolution. 2. Minimal emphysema. 3. Cardiomegaly and coronary artery disease. TECHNICAL DOCUMENTATION: JOB ID: [id number] Quality ID # [id number]: Final reports with documentation of one or more dose reduction techniques (e.g., Au tomated exposure control, adjustment of the mA and/or kV according to patient size, use of iterative reconstruction technique) 2010 [employer]- All Rights Reserved Reading location - IP/workstation name: [email or web address]
[2018-10-26] MEDS: DOCUSATE SODIUM 100 MG CAPSULE PO SCH ×2 (09:42→17:15)
[2018-10-26] MEDS: FUROSEMIDE 40 MG TABLET PO SCH (09:42)
[2018-10-26] MEDS: ASPIRIN 81 MG TABLET, ENT COATED PO SCH (09:43)
[2018-10-26] MEDS: FLUTICASONE/VILANTEROL 200-25 MCG/DOSE IH SCH (09:43)
[2018-10-26] MEDS: DILTIAZEM HCL 120 MG CAP.SR.24H PO SCH ×2 (09:43→21:20)
[2018-10-26] MEDS: ENOXAPARIN SODIUM INJ 30 MG/0.3 ML DISP.SYRIN SUBCUT SCH (09:44)
[2018-10-26] MEDS: TIOTROPIUM BROMIDE DPI 5 CAP/KIT (18 MCG/CAP) IH SCH (09:44)
[2018-10-26] MEDS ORDERED: LEVOFLOXACIN 500 MG TABLET PO SCH (10:00)
[2018-10-26] MEDS: LEVOFLOXACIN 250 MG TABLET PO SCH (10:36)
--- NOTE | 2018-10-26 22:24 | XCELERA REPORT ---
[address] [address] Transthoracic Echocardiogram Report Name: ALEJANDRA APPIAH Age: 78 yrs Gender: Female : 1940 Patient Status: Inpatient Patient Location: [address] [place], [place] [address] Study Date: 10/24/2018 05:23 PM Height: 62 in Weight: 209 lb BSA: 1.9 m2 Procedure: A two-dimensional transthoracic echocardiogram with color flow and Doppler was performed. The study was technically difficult with many images being suboptimal in quality. Reason For Study: CHF History: CHF. Ordering Physician: FARHAD DOWNS Performed By: Denise Valadez Interpretation Summary The left ventricle is normal in size. LV EF is 65% Left ventricular systolic function is normal. The left ventricular ejection fraction is within normal limits. There is normal left ventricular wall thickness. Doppler measurements suggest impaired left ventricular relaxation, which is associated with grade I/IV or mild diastolic dysfunction The left ventricular wall motion is normal. There is no thrombus. Not a good study for ASD,VSD , or PFO evaluation. The right ventricle is not well visualized secondary to technical limitations The left atrial size is normal. There is no evidence of mitral valve prolapse. There is no vegetation seen on the mitral valve. There is no mitral valve stenosis. There is a trace amount of mitral regurgitation There is no aortic valvular vegetation. There is no aortic valve stenosis There is no LVOT obstruction. No aortic regurgitation is present. There is no tricuspid stenosis. There is a trace to mild amount of tricuspid regurgitation There is mild pulmonary hypertension by echo RVSP is 46 mm of Hg , with RA mean of 10. There is no pulmonic valvular stenosis. There is a trace amount of pulmonic regurgitation There is no pericardial effusion. MMode/2D Measurements & Calculations RVDd: 2.9 cm LVIDd: 4.4 cm FS: 33.9 % Ao root diam: 2.7 cm IVSd: 0.90 cm LVIDs: 2.9 cm EDV(Teich): 88.6 ml Ao root area: 5.7 cm2 LVPWd: 0.89 cm ESV(Teich): 32.8 ml LA dimension: 3.4 cm EF(Teich): 63.0 % Doppler Measurements & Calculations MV E max emmanuel: MV P1/2t max emmanuel: Ao V2 max: LV V1 max P.9 cm/sec 108.6 cm/sec 185.3 cm/sec 9.9 mmHg MV A max emmanuel: MV P1/2t: 60.6 msec Ao max PG: LV V1 max: 121.4 cm/sec MVA(P1/2t): 3.6 cm2 13.7 mmHg 157.3 cm/sec MV E/A: 0.70 MV dec slope: 525.1 cm/sec2 MV dec time: 0.23 sec PA V2 max: PI end-d emmanuel: TR max emmanuel: MV P1/2t-pr_phl: 138.5 cm/sec 108.6 cm/sec 297.3 cm/sec 60.6 msec PA max P.7 mmHg TR max P.3 mmHg Left Ventricle The left ventricle is normal in size. There is normal left ventricular wall thickness. LV EF is 65%. Left ventricular systolic function is normal. The left ventricular ejection fraction is within normal limits. Doppler measurements suggest impaired left ventricular relaxation, which is associated with grade I/IV or mild diastolic dysfunction. The left ventricular wall motion is normal. There is no thrombus. Not a good study for ASD,VSD , or PFO evaluation. Right Ventricle The right ventricle is grossly normal size. The right ventricle is not well visualized secondary to technical limitations. Atria Right atrium not well visualized secondary to technical limitations. The left atrial size is normal. Mitral Valve There is no evidence of mitral valve prolapse. There is no vegetation seen on the mitral valve. There is no mitral valve stenosis. There is a trace amount of mitral regurgitation. Aortic Valve There is no aortic valvular vegetation. There is no aortic valve stenosis. There is no LVOT obstruction. No aortic regurgitation is present. Tricuspid Valve There is no tricuspid stenosis. There is a trace to mild amount of tricuspid regurgitation. There is mild pulmonary hypertension by echo. RVSP is 46 mm of Hg , with RA mean of 10. Pulmonic Valve There is no pulmonic valvular stenosis. There is a trace amount of pulmonic regurgitation. Effusions There is no pericardial effusion. : FARHAD DOWNS > Nona Flores
[2018-10-27] MEDS: LEVOTHYROXINE SODIUM 0.1 MG TABLET PO SCH (05:26)
[2018-10-27] MEDS: PANTOPRAZOLE SODIUM 40 MG TABLET.DR PO SCH ×2 (05:26→17:33)
[2018-10-27] MEDS: METHYLPREDNISOLONE INJ 125 MG/2 ML SDV IV SCH (05:26)
[2018-10-27 06:09] LABS: ABSOLUTE LYMPHOCYTES (AUTO) 0.6 10^3/uL (0.5-4.7); ABSOLUTE MONOCYTES (AUTO) 0.2 10^3/uL (0.1-1.4); ABSOLUTE NEUT (AUTO) 8.4 10^3/uL (1.7-8.2); HEMATOCRIT 30.6 % (36.0-47.0); HEMOGLOBIN 10.7 g/dL (12.0-15.5); MEAN CORPUSCULAR HEMOGLOBIN 32.2 pg (27.0-33.4); MEAN CORPUSCULAR VOLUME 92 fl (80-97); MONOCYTES % (AUTO) 2.6 % (3-13); PLATELET COUNT 169 10^3/uL (150-450); RED BLOOD COUNT 3.33 10^6/uL (3.72-5.28); RED CELL DISTRIBUTION WIDTH 15.1 % (11.5-14.0); SEGMENTED NEUTROPHILS % (AUTO) 91.4 % (42-78); TOTAL CELLS COUNTED % (AUTO) 100 %; WHITE BLOOD COUNT 9.2 10^3/uL (4.0-10.5)
[2018-10-27 06:28] LABS: ANION GAP 8 (5-19); BLOOD UREA NITROGEN 63 mg/dL (7-20); CALCIUM 9.4 mg/dL (8.4-10.2); CARBON DIOXIDE 31 mmol/L (22-30); CHLORIDE 102 mmol/L (98-107); GLUCOSE 185 mg/dL (75-110); POTASSIUM 4.1 mmol/L (3.6-5.0); SODIUM 140.6 mmol/L (137-145)
[2018-10-27] MEDS: LEVALBUTEROL HCL NEB 1.25 MG/3 ML AMPUL NEB PRN ×4 (08:47→21:15)
--- NOTE | 2018-10-27 09:12 | PDOC PROGRESS REPORT ---
Subjective Progress Note for:: 10/27/18 Subjective:: Patient is lying in bed on nasal cannula afebrile not tachypneic she is feeling much better she is able to get up and walk around the room without any shortness of breath she denies nausea vomiting palpitations. Discussed results of the CAT scan of the chest options were given as to which way to proceed. Reason For Visit: HEART FAILURE,ACUTE CHRONIC SYSTOLIC CONGESTIVE Physical Exam Vital Signs: Temp Pulse Resp BP Pulse Ox 97.9 F 57 L 21 H 141/70 H 90 L 10/27/18 07:32 10/27/18 07:32 10/27/18 07:32 10/27/18 07:32 10/27/18 07:32 Intake & Output 10/26/18 10/27/18 10/28/18 06:59 06:59 06:59 Intake Total 1899 645 Output Total 1350 1550 Balance 549 -905 Weight 98.3 kg 99 kg General appearance: PRESENT: no acute distress, well-developed, well-nourished Head exam: PRESENT: atraumatic, normocephalic Eye exam: PRESENT: conjunctiva pink, EOMI, PERRLA. ABSENT: scleral icterus Ear exam: PRESENT: normal external ear exam Mouth exam: PRESENT: moist, tongue midline Neck exam: PRESENT: full ROM. ABSENT: carotid bruit, JVD, lymphadenopathy, thyromegaly Respiratory exam: PRESENT: decreased breath sounds Cardiovascular exam: PRESENT: RRR. ABSENT: diastolic murmur, rubs, systolic murmur Pulses: PRESENT: normal dorsalis pedis pul, +2 pedal pulses bilateral Vascular exam: PRESENT: normal capillary refill GI/Abdominal exam: PRESENT: normal bowel sounds, soft. ABSENT: distended, guarding, mass, organolmegaly, rebound, tenderness Rectal exam: PRESENT: deferred Extremities exam: ABSENT: full ROM Musculoskeletal exam: PRESENT: ambulatory Neurological exam: PRESENT: alert, awake, oriented to person, oriented to place, oriented to time, oriented to situation, CN II-XII grossly intact. ABSENT: motor sensory deficit Psychiatric exam: PRESENT: appropriate affect, normal mood. ABSENT: homicidal ideation, suicidal ideation Skin exam: PRESENT: dry, intact, warm. ABSENT: cyanosis, rash Results Laboratory Results: 10/27/18 05:15 10/27/18 05:15 10/27/18 10/27/18 05:15 05:15 WBC 9.2 RBC 3.33 L Hgb 10.7 L Hct 30.6 L MCV 92 MCH 32.2 MCHC 35.0 RDW 15.1 H Plt Count 169 Seg Neutrophils % 91.4 H Lymphocytes % 6.0 L Monocytes % 2.6 L Eosinophils % 0.0 Basophils % 0.0 Absolute Neutrophils 8.4 H Absolute Lymphocytes 0.6 Absolute Monocytes 0.2 Absolute Eosinophils 0.0 Absolute Basophils 0.0 Sodium 140.6 Potassium 4.1 Chloride 102 Carbon Dioxide 31 H Anion Gap 8 BUN 63 H Creatinine 1.74 H Est GFR ( Amer) 34 L Est GFR (Non-Af Amer) 28 L Glucose 185 H Calcium 9.4 10/24/18 10/24/18 17:02 17:02 Creatine Kinase 40 CK-MB (CK-2) 0.74 Troponin I < 0.012 NT-Pro-B Natriuret Pep 705 H Impressions: Chest X-Ray 10/24/18 16:59 IMPRESSION: Cardiomegaly. Mild pulmonary edema. Cannot exclude a mass or nodule in the medial right base. Chest CT 10/26/18 08:12 IMPRESSION: 1. No pulmonary mass or nodule to correspond to finding suspected on prior chest radiograph. There is however a 1.6 cm mixed solid and ground- glass nodule of the left upper lobe, nonspecific. Recommend follow-up CT in 3 to 6 months to ensure stability or resolution. 2. Minimal emphysema. 3. Cardiomegaly and coronary artery disease. Assessment & Plan - Diagnosis (1) Acute on chronic congestive heart failure Qualifiers: Heart failure type: systolic Qualified Code(s): I50.23 - Acute on chronic systolic (congestive) heart failure Is this a current diagnosis for this admission?: Yes Plan: Continue on the Lasix she has had a negative balance of 905 mL. Increase activity (2) Chronic kidney disease Qualifiers: Chronic kidney disease stage: stage 3 (moderate) Qualified Code(s): N18.3 - Chronic kidney disease, stage 3 (moderate) Is this a current diagnosis for this admission?: Yes Plan: He is getting diuretics we will continue to monitor BMP 7 it seems to stabilize at a chronic kidney disease 3A (3) COPD with acute exacerbation Is this a current diagnosis for this admission?: Yes Plan: Continue beta-2 agonists nebulizer, Spiriva we will change from Solu-Medrol to prednisone 40 p.o. twice daily supplemental oxygen (4) Hypertension Qualifiers: Hypertension type: essential hypertension Qualified Code(s): I10 - Essential (primary) hypertension Is this a current diagnosis for this admission?: Yes Plan: Currently has been controlled on the current medication regimen. (5) Lung nodule < 6cm on CT Is this a current diagnosis for this admission?: Yes Plan: Plan discussed the intermediate readings on the mixed lung nodule 2 options 1 to follow at 3 months interval see for change or order outpatient PET scan if it is hypermetabolic proceed to biopsy. Unfortunately in light of her chronic hypoxic respiratory failure even pursuing these may make difficulty in further treatment options. She will think about it and let Dr. Osullivan know. - Time Time Spent with patient: 15-24 minutes Medications reviewed and adjusted accordingly: Yes Anticipated discharge: Home Within: within 24 hours - Inpatient Certification Medical Necessity: Failure to Improve With Outpatient Therapy, Need for Nebulizer Therapy and Monitoring of Response Post Hospital Care: D/C Production Team Member Documentation
--- NOTE | 2018-10-27 09:53 | EKG REPORT ---
SEVERITY:- ABNORMAL ECG - SINUS TACHYCARDIA VENTRICULAR PREMATURE COMPLEXES RIGHT BUNDLE BRANCH BLOCK : Confirmed by: Radha Pineda 27-Oct-2018 09:52:27
[2018-10-27] MEDS: FUROSEMIDE 40 MG TABLET PO SCH (10:07)
[2018-10-27] MEDS: FLUTICASONE/VILANTEROL 200-25 MCG/DOSE IH SCH (10:07)
[2018-10-27] MEDS: DOCUSATE SODIUM 100 MG CAPSULE PO SCH ×2 (10:07→17:33)
[2018-10-27] MEDS: ENOXAPARIN SODIUM INJ 30 MG/0.3 ML DISP.SYRIN SUBCUT SCH (10:07)
[2018-10-27] MEDS: TIOTROPIUM BROMIDE DPI 5 CAP/KIT (18 MCG/CAP) IH SCH (10:07)
[2018-10-27] MEDS: LEVOFLOXACIN 250 MG TABLET PO SCH (10:07)
[2018-10-27] MEDS: PREDNISONE 20 MG TABLET PO SCH ×2 (10:07→17:33)
[2018-10-27] MEDS: ASPIRIN 81 MG TABLET, ENT COATED PO SCH (10:07)
[2018-10-27] MEDS: DILTIAZEM HCL 120 MG CAP.SR.24H PO SCH ×2 (10:07→21:17)
[2018-10-28] MEDS: LEVOTHYROXINE SODIUM 0.1 MG TABLET PO SCH (05:15)
[2018-10-28] MEDS: PANTOPRAZOLE SODIUM 40 MG TABLET.DR PO SCH (05:15)
[2018-10-28] MEDS: LEVALBUTEROL HCL NEB 1.25 MG/3 ML AMPUL NEB PRN (09:32)
--- NOTE | 2018-10-28 09:44 | PDOC DISCHARGE SUMMARY ---
General - Admit/Disc Date/PCP Admission Date/Primary Care Provider: 10/24/18 14:15 Reji DAVIDSON MD Discharge Date: 10/28/18 - Discharge Diagnosis (1) Acute on chronic congestive heart failure Is this a current diagnosis for this admission?: Yes (2) Chronic kidney disease Is this a current diagnosis for this admission?: Yes (3) COPD with acute exacerbation Is this a current diagnosis for this admission?: Yes (4) Hypertension Is this a current diagnosis for this admission?: Yes (5) Lung nodule < 6cm on CT Is this a current diagnosis for this admission?: Yes - Additional Information Discharge Diet: Cardiac Discharge Activity: Activity As Tolerated, Balance Activity w/Rest, Weigh Daily Prescriptions: Levofloxacin [Levaquin 250 mg Tablet] 250 mg PO DAILY #7 tablet Prednisone [Deltasone 20 mg Tablet] 40 mg PO BID #30 tablet Home Medications: Albuterol Sulfate [Proair HFA Inhalation Aerosol 8.5 gm MDI] 2 puff IH Q4HP PRN 10/24/18 Aspirin [Ecotrin 81 mg EC Tablet] 81 mg PO DAILY 10/24/18 Diltiazem HCl [Diltiazem 24Hr Cd] 120 mg PO Q12 10/24/18 Levothyroxine Sodium [Synthroid 0.1 mg Tablet] 0.1 mg PO Q6AM 10/24/18 Rabeprazole Sodium [Aciphex] 20 mg PO BID 10/24/18 Rosuvastatin Calcium [Crestor 10 mg Tablet] 10 mg PO QHS 10/24/18 Telmisartan [Micardis 40 mg Tablet] 40 mg PO DAILY 10/24/18 Tiotropium Chinle [Spiriva Handihaler 5 Cap/Kit (18 Mcg/Cap)] 1 puff IH DAILY 10/24/18 Ergocalciferol (Vitamin D2) [Drisdol 50,000 unit (1.25MG) Capsule] 50,000 unit PO We@0800 capsule 10/28/18 Fluticasone/Vilanterol [Breo 200-25 Mcg Ellipta 14 Dose/Dpi] 1 inh IH DAILY inhaler 10/28/18 Levofloxacin [Levaquin 250 mg Tablet] 250 mg PO DAILY #7 tablet 10/28/18 Prednisone [Deltasone 20 mg Tablet] 40 mg PO BID #30 tablet 10/28/18 History of Present Illness History of Present Illness: ALEJANDRA APPIAH is a 78 year old female Patient comes in due to progressive shortness of breath with failed outpatient treatment she was admitted gunderson cultures were done sputum culture she was put on broad-spectrum IV antibiotics [id number] nebulizers IV steroids. She was found to have an elevated proBNP and chest x-ray suggestive of fluid overload she was started on IV Lasix. She was seen by cardiology her clinical course showed continued improvement with less shortness of breath improve oxygenation improved exertional capacity, she also showed subjective less shortness of breath physically she showed no wheezing rhonchi her lungs started improving. As her clinical course improved her medication was switched to orals. Was seen on a chest x-ray density which was followed up by CT scan of the chest which showed 1.6 cm mass solid with groundglass discussion was had with the patient regarding the best treatment course and it was opted to have a 3-month repeat CT scan of the chest. Kidney function stayed at her baseline without any major shifting she has a history of chronic kidney disease stage III. As patient started showing improvement was able to ambulate with a routine oxygen and was felt stable for discharge. She will be discharged home with the addition of Levaquin 250 daily and also prednisone 40 twice daily for 7 days he will follow-up with Dr. Osullivan at that time. She will continue her other home medications i.e. hypertensive, chronic obstructive lung disease medications. Patient was fully explained and understood treatment plan and follow-ups for the lung mass and with Dr. Osullivan. Physical Exam Vital Signs: Temp Pulse Resp BP Pulse Ox 97.6 F 84 18 143/44 H 94 10/28/18 07:42 10/28/18 09:34 10/28/18 09:34 10/28/18 07:42 10/28/18 09:34 Intake & Output 10/27/18 10/28/18 10/29/18 06:59 06:59 06:59 Intake Total 645 1283 Output Total 1550 2065 Balance -905 -992 Weight 99 kg 98.9 kg General appearance: PRESENT: no acute distress, well-developed, well-nourished Head exam: PRESENT: atraumatic, normocephalic Eye exam: PRESENT: conjunctiva pink, EOMI, PERRLA. ABSENT: scleral icterus Ear exam: PRESENT: normal external ear exam Mouth exam: PRESENT: moist, tongue midline Neck exam: PRESENT: full ROM. ABSENT: carotid bruit, JVD, lymphadenopathy, thyromegaly Respiratory exam: PRESENT: decreased breath sounds Cardiovascular exam: PRESENT: RRR. ABSENT: diastolic murmur, rubs, systolic murmur Pulses: PRESENT: normal dorsalis pedis pul, +2 pedal pulses bilateral GI/Abdominal exam: PRESENT: normal bowel sounds, soft. ABSENT: distended, guarding, mass, organolmegaly, rebound, tenderness Rectal exam: PRESENT: deferred Extremities exam: PRESENT: full ROM Musculoskeletal exam: PRESENT: ambulatory Neurological exam: PRESENT: alert, awake, oriented to person, oriented to place, oriented to time, oriented to situation, CN II-XII grossly intact. ABSENT: motor sensory deficit Psychiatric exam: PRESENT: appropriate affect, normal mood. ABSENT: homicidal ideation, suicidal ideation Skin exam: PRESENT: dry, intact, warm. ABSENT: cyanosis, rash Results Laboratory Results: 10/27/18 05:15 10/27/18 05:15 10/24/18 10/24/18 17:02 17:02 Creatine Kinase 40 CK-MB (CK-2) 0.74 Troponin I < 0.012 NT-Pro-B Natriuret Pep 705 H Impressions: Chest X-Ray 10/24/18 16:59 IMPRESSION: Cardiomegaly. Mild pulmonary edema. Cannot exclude a mass or nodule in the medial right base. Chest CT 10/26/18 08:12 IMPRESSION: 1. No pulmonary mass or nodule to correspond to finding suspected on prior chest radiograph. There is however a 1.6 cm mixed solid and ground- glass nodule of the left upper lobe, nonspecific. Recommend follow-up CT in 3 to 6 months to ensure stability or resolution. 2. Minimal emphysema. 3. Cardiomegaly and coronary artery disease. Qualifiers - * PATIENT BEING DISCHARGED WITH ANY OF THE FOLLOWING DIAGNOSIS: Heart Failure VTE patient discharged on overlapping Therapy?: Yes NH Pt being discharged on Aspirin therapy?: Yes NH Pt being discharged on Statins?: Yes NH Pt discharged ACEI/ARBS?: No Reason(s) for not prescribing ACEI/ARBS:: Contraindicated - Chronic kidney disease stage III HF Pt being discharged on ACEI for LVEF less than 40%?: No Reason(s) for not prescribing ACEI:: Contraindicated - Chronic kidney disease s tage III HF Pt being discharged on ARBS for LVEF less than 40%?: No Reason(s) for not prescribing ARBS:: Contraindicated - Chronic kidney disease stage III HF Pt with Afib discharged with Warfarin?: No Reason(s) for not prescribing Warfarin:: Contraindicated - History of GI bleeding HF Pt discharged on evidence-based Beta Lucas:: No Reason(s) for not prescribing evidence-based Beta Lucas:: Contraindicated - Chronic hypoxic hypercapnic respiratory failure, COPD
[2018-10-28] MEDS: FUROSEMIDE 40 MG TABLET PO SCH (10:03)
[2018-10-28] MEDS: DILTIAZEM HCL 120 MG CAP.SR.24H PO SCH (10:03)
[2018-10-28] MEDS: PREDNISONE 20 MG TABLET PO SCH (10:03)
[2018-10-28] MEDS: ASPIRIN 81 MG TABLET, ENT COATED PO SCH (10:03)
[2018-10-28] MEDS: FLUTICASONE/VILANTEROL 200-25 MCG/DOSE IH SCH (10:04)
[2018-10-28] MEDS: TIOTROPIUM BROMIDE DPI 5 CAP/KIT (18 MCG/CAP) IH SCH (10:04)
[2018-10-28] MEDS: ENOXAPARIN SODIUM INJ 30 MG/0.3 ML DISP.SYRIN SUBCUT SCH (10:04)
[2018-10-28] MEDS: DOCUSATE SODIUM 100 MG CAPSULE PO SCH (10:04)
[2018-10-28] MEDS: LEVOFLOXACIN 250 MG TABLET PO SCH (10:09)
[2018-10-28 10:12] VITALS: BP 166/64
== END 2018-10-28 12:30 | disposition home or self-care (01) | DRG 291 ==
LOC: 3W 14:15
PROVIDERS: ADMIT Internal Medicine; ATTEND Internal Medicine
DX: I13.0 Hypertensive heart and chronic kidney disease with heart failure and stage 1 through stage 4 chronic kidney disease, or unspecified chronic kidney disease (principal); I50.23 Acute on chronic systolic (congestive) heart failure; J44.1 Chronic obstructive pulmonary disease with (acute) exacerbation; I47.1 Supraventricular tachycardia; N18.3 Chronic kidney disease, stage 3 (moderate); E03.9 Hypothyroidism, unspecified; K21.9 Gastro-esophageal reflux disease without esophagitis; M19.90 Unspecified osteoarthritis, unspecified site; E78.2 Mixed hyperlipidemia; Z90.49 Acquired absence of other specified parts of digestive tract; Z96.653 Presence of artificial knee joint, bilateral; Z87.891 Personal history of nicotine dependence; R91.1 Solitary pulmonary nodule
CPT/HCPCS: 36415; 36600; 71046; 71250; 80048; 80053; 82550; 82553; 82803; 83735; 83880; 84443; 84484; 85025; 93005; 93010; 93306; 94640; J0696; J1650; J1940; J1956; J2930; J3490; J7512

== ENCOUNTER → 2018-11-15 | Outpatient (CLI) | payer MEDICARE, OTHER ==
[2018-11-15 08:05] LABS: HEMATOCRIT 30.6 % (36.0-47.0); HEMOGLOBIN 10.6 g/dL (12.0-15.5); MEAN CORPUSCULAR HEMOGLOBIN 32.1 pg (27.0-33.4); MEAN CORPUSCULAR HGB CONC 34.6 g/dL (32.0-36.0); MEAN CORPUSCULAR VOLUME 93 fl (80-97); PLATELET COUNT 135 10^3/uL (150-450); RED CELL DISTRIBUTION WIDTH 15.7 % (11.5-14.0); WHITE BLOOD COUNT 6.2 10^3/uL (4.0-10.5)
[2018-11-15 08:20] LABS: APPEARANCE,URINE CLOUDY; BILIRUBIN,URINE NEGATIVE (NEGATIVE); COLOR,URINE AMBER; GLUCOSE, URINE NEGATIVE (NEGATIVE); KETONES,URINE NEGATIVE (NEGATIVE); LEUKOCYTE ESTERASE,URINE TRACE (NEGATIVE); NITRITE,URINE NEGATIVE (NEGATIVE); PROTEIN,URINE 100 mg/dL (NEGATIVE); URINE SPECIFIC GRAVITY 1.016
[2018-11-15 08:27] LABS: ANION GAP 9 (5-19); BLOOD UREA NITROGEN 23 mg/dL (7-20); CARBON DIOXIDE 31 mmol/L (22-30); CHLORIDE 102 mmol/L (98-107); GLUCOSE 107 mg/dL (75-110); IRON(TIBC) 75.8 ug/dL (37-170); PHOSPHORUS 3.6 mg/dL (2.5-4.5); POTASSIUM 4.3 mmol/L (3.6-5.0); SODIUM 141.6 mmol/L (137-145)
== END ==
LOC: OD 07:17
PROVIDERS: ATTEND Internal Medicine Nephrology
DX: N18.3 Chronic kidney disease, stage 3 (moderate) (principal); I12.9 Hypertensive chronic kidney disease with stage 1 through stage 4 chronic kidney disease, or unspecified chronic kidney disease; R80.9 Proteinuria, unspecified; D64.9 Anemia, unspecified; R30.0 Dysuria
CPT/HCPCS: 36415; 80048; 81001; 82728; 83540; 83550; 83970; 84100; 85027; 87086; 87088; 87186

== ENCOUNTER → 2018-12-05 | Outpatient (CLI) | payer MEDICARE, OTHER ==
[2018-12-05 10:28] LABS: ANION GAP 10 (5-19); BLOOD UREA NITROGEN 31 mg/dL (7-20); CALCIUM 9.5 mg/dL (8.4-10.2); CARBON DIOXIDE 31 mmol/L (22-30); CHLORIDE 102 mmol/L (98-107); GLUCOSE 134 mg/dL (75-110); POTASSIUM 4.2 mmol/L (3.6-5.0); SODIUM 142.8 mmol/L (137-145)
== END ==
LOC: OD 09:21
PROVIDERS: ATTEND Physician Assistant Medical
DX: I12.9 Hypertensive chronic kidney disease with stage 1 through stage 4 chronic kidney disease, or unspecified chronic kidney disease (principal); N18.3 Chronic kidney disease, stage 3 (moderate); R80.9 Proteinuria, unspecified; R60.9 Edema, unspecified; D64.9 Anemia, unspecified
CPT/HCPCS: 36415; 80048

== ENCOUNTER → 2019-01-12 | Outpatient (CLI) | payer MEDICARE, OTHER ==
--- NOTE | 2019-01-12 12:21 | RADIOLOGY REPORT (SQ) ---
EXAM DESCRIPTION: HIP LEFT AP/LATERAL COMPLETED DATE/TIME: 01/12/2019 9:07 am REASON FOR STUDY: LEFT HIP PAIN M25.559 PAIN IN UNSPECIFIED HIP COMPARISON: None. NUMBER OF VIEWS: Two views. TECHNIQUE: AP pelvis and additional frog-leg view of the left hip. LIMITATIONS: None. FINDINGS: MINERALIZATION: Normal. LEFT HIP: No fracture or dislocation. No worrisome bone lesions. Mild joint space narrowing and bon y spurring. RIGHT HIP: No fracture or dislocation. No worrisome bone lesions. Mild joint space narrowing and [place] spurring. PUBIS AND ISCHIUM: No fracture. PELVIS: No fracture. SACRUM: No fracture or dislocation. No worrisome bone lesions. LOWER LUMBAR SPINE: No fracture or dislocation. No worrisome bone lesions. No significant disc disea se. SOFT TISSUES: No findings. OTHER: Rectosigmoid anastomotic bryson are present. Low anterior abdominal wall laparoscopic tacks from ventral hernia repair IMPRESSION: No acute fracture or malalignment. Left hip joint space narrowing and mild bony spurring TECHNICAL DOCUMENTATION: JOB ID: [id number] [employer]- All Rights Reserved Reading location - IP/workstation name: [email or web address]
== END ==
LOC: OD 08:35
PROVIDERS: ATTEND Internal Medicine
DX: M25.552 Pain in left hip (principal)

== ENCOUNTER → 2019-03-16 | Outpatient (CLI) | payer MEDICARE, OTHER ==
[2019-03-16 11:06] LABS: ABSOLUTE BASOPHILS # (AUTO) 0.1 10^3/uL (0.0-0.2); ABSOLUTE EOSINOPHILS # (AUTO) 0.2 10^3/uL (0.0-0.6); ABSOLUTE LYMPHOCYTES (AUTO) 1.8 10^3/uL (0.5-4.7); ABSOLUTE MONOCYTES (AUTO) 0.4 10^3/uL (0.1-1.4); ABSOLUTE NEUT (AUTO) 2.6 10^3/uL (1.7-8.2); EOSINOPHILS % (AUTO) 4.7 % (0-6); HEMATOCRIT 36.8 % (36.0-47.0); HEMOGLOBIN 12.4 g/dL (12.0-15.5); LYMPHOCYTES % (AUTO) 35.4 % (13-45); MEAN CORPUSCULAR HEMOGLOBIN 30.4 pg (27.0-33.4); MEAN CORPUSCULAR HGB CONC 33.8 g/dL (32.0-36.0); MEAN CORPUSCULAR VOLUME 90 fl (80-97); MONOCYTES % (AUTO) 7.7 % (3-13); PLATELET COUNT 192 10^3/uL (150-450); RED BLOOD COUNT 4.09 10^6/uL (3.72-5.28); RED CELL DISTRIBUTION WIDTH 13.9 % (11.5-14.0); SEGMENTED NEUTROPHILS % (AUTO) 51.2 % (42-78); TOTAL CELLS COUNTED % (AUTO) 100 %; WHITE BLOOD COUNT 5.1 10^3/uL (4.0-10.5)
[2019-03-16 11:20] LABS: ALKALINE PHOSPHATASE 104 U/L (38-126); ANION GAP 7 (5-19); ASPARTATE AMINO TRANSFERASE 20 U/L (14-36); BILIRUBIN,DIRECT 0.3 mg/dL (0.0-0.4); BILIRUBIN,TOTAL 0.4 mg/dL (0.2-1.3); BLOOD UREA NITROGEN 33 mg/dL (7-20); CALCIUM 10.2 mg/dL (8.4-10.2); CARBON DIOXIDE 31 mmol/L (22-30); CHLORIDE 102 mmol/L (98-107); GLUCOSE 110 mg/dL (75-110); TOTAL PROTEIN 6.6 g/dL (6.3-8.2); TRIGLYCERIDES 244 mg/dL (<150)
[2019-03-16 11:31] LABS: DIRECT LDL 163 mg/dL (<100)
[2019-03-16 11:36] LABS: VLDL CHOLESTEROL 48.8 mg/dL (10-31)
== END ==
LOC: OD 09:58
PROVIDERS: ATTEND Internal Medicine
DX: I12.9 Hypertensive chronic kidney disease with stage 1 through stage 4 chronic kidney disease, or unspecified chronic kidney disease (principal); N18.3 Chronic kidney disease, stage 3 (moderate); J44.9 Chronic obstructive pulmonary disease, unspecified; E78.5 Hyperlipidemia, unspecified; E03.9 Hypothyroidism, unspecified
CPT/HCPCS: 36415; 80053; 80061; 84443; 85025

== ENCOUNTER → 2019-03-26 | Outpatient (CLI) | payer MEDICARE, OTHER ==
[2019-03-26 09:21] LABS: HEMATOCRIT 37.3 % (36.0-47.0); HEMOGLOBIN 12.5 g/dL (12.0-15.5); MEAN CORPUSCULAR HEMOGLOBIN 29.9 pg (27.0-33.4); MEAN CORPUSCULAR HGB CONC 33.4 g/dL (32.0-36.0); MEAN CORPUSCULAR VOLUME 90 fl (80-97); PLATELET COUNT 185 10^3/uL (150-450); RED BLOOD COUNT 4.16 10^6/uL (3.72-5.28); RED CELL DISTRIBUTION WIDTH 13.9 % (11.5-14.0); WHITE BLOOD COUNT 5.8 10^3/uL (4.0-10.5)
[2019-03-26 09:42] LABS: ANION GAP 8 (5-19); BLOOD UREA NITROGEN 29 mg/dL (7-20); CARBON DIOXIDE 29 mmol/L (22-30); CHLORIDE 101 mmol/L (98-107); GLUCOSE 101 mg/dL (75-110); PHOSPHORUS 3.9 mg/dL (2.5-4.5); POTASSIUM 4.9 mmol/L (3.6-5.0)
[2019-03-26 09:46] LABS: APPEARANCE,URINE SLIGHTLY-CLOUDY; BILIRUBIN,URINE NEGATIVE (NEGATIVE); COLOR,URINE YELLOW; GLUCOSE, URINE NEGATIVE (NEGATIVE); KETONES,URINE NEGATIVE (NEGATIVE); LEUKOCYTE ESTERASE,URINE NEGATIVE (NEGATIVE); NITRITE,URINE NEGATIVE (NEGATIVE); PROTEIN,URINE 30 mg/dL (NEGATIVE); URINE SPECIFIC GRAVITY 1.015; UROBILINOGEN,URINE NEGATIVE mg/dL (<2.0)
== END ==
LOC: OD 08:30
PROVIDERS: ATTEND Physician Assistant Medical
DX: I12.9 Hypertensive chronic kidney disease with stage 1 through stage 4 chronic kidney disease, or unspecified chronic kidney disease (principal); N18.3 Chronic kidney disease, stage 3 (moderate); D63.1 Anemia in chronic kidney disease; R60.9 Edema, unspecified; E66.9 Obesity, unspecified
CPT/HCPCS: 36415; 80048; 81001; 83970; 84100; 85027

== ENCOUNTER → 2020-04-14 | Outpatient (CLI) | payer MEDICARE, OTHER ==
--- NOTE | 2020-04-14 09:32 | RADIOLOGY REPORT (SQ) ---
EXAM DESCRIPTION: CT CHEST WITHOUT IMAGES COMPLETED DATE/TIME: 04/14/2020 8:55 am REASON FOR STUDY: R91.1 SOLITARY PULMONARY NODULE R91.1 SOLITARY PULMONARY NODULE COMPARISON: CT of the chest without contrast from 02/14/2020. TECHNIQUE: CT scan performed of the chest without intravenous contrast. Images reviewed with lung, soft tissue and bone windows. Reconstructed coronal and sagittal MPR images reviewed. All images st ored on PACS. All CT scanners at this facility use dose modulation, iterative reconstruction, and/or weight based d osing when appropriate to reduce radiation dose to as low as reasonably achievable (ALARA). [facility]: Dose Right [facility]: CareDose [facility]: Dose Right [facility]: Teradose 4D [facility]: [employer] RADIATION DOSE: CT Rad equipment meets quality standard of care and radiation dose reduction techniq ues were employed. CTDIvol: 14.8 mGy. DLP: 634 mGy-cm. LIMITATIONS: No technical limitations. FINDINGS: LUNGS AND PLEURA: Unchanged upper lobe predominant centrilobular emphysema and mild diffus e bronchial wall thickening. The 15 x 15 mm mixed solid and ground-glass nodule in the left upper lo be (image 26 of series 4) is unchanged in size and appearance. There is no new or enlarging pulmonar y nodule. There is also no acute consolidation, ground-glass opacification, pleural effusion or pneu mothorax. HILAR AND MEDIASTINAL STRUCTURES: No adenopathy or mass. HEART AND VASCULAR STRUCTURES: Atherosclerotic calcification of the thoracic aorta, mitral annulus, c oronary arteries, and aortic valve leaflets. There is no pericardial effusion. UPPER ABDOMEN: Colonic diverticulosis, cholecystectomy clips in the gallbladder fossa, and stable 2.6 x 2 cm lipid rich left adrenal adenoma. THYROID AND OTHER SOFT TISSUES: No mass or adenopathy. BONES: No significant finding. HARDWARE: No osseous lesion or acute fracture. OTHER: No other findings. IMPRESSION: Stable 15 x 15 mm mixed solid and ground-glass nodule in the left upper lobe (image 26 o f series 4). There is no acute cardiopulmonary process. TECHNICAL DOCUMENTATION: JOB ID: [id number] Quality ID # [id number]: Final reports with documentation of one or more dose reduction techniques (e.g., Au tomated exposure control, adjustment of the mA and/or kV according to patient size, use of iterative reconstruction technique) 2010 [employer]- All Rights Reserved Reading location - IP/workstation name: [email or web address]
== END ==
LOC: RAD 08:43
PROVIDERS: ATTEND Internal Medicine Pulmonary Disease
DX: R91.1 Solitary pulmonary nodule (principal)
CPT/HCPCS: 71250

== ENCOUNTER → 2020-05-15 | Outpatient (CLI) | payer MEDICARE, OTHER ==
[2020-05-15 11:06] LABS: ALBUMIN 4.1 g/dL (3.5-5.0); ALKALINE PHOSPHATASE 136 U/L (38-126); ASPARTATE AMINO TRANSFERASE 24 U/L (14-36); BILIRUBIN,DIRECT 0.1 mg/dL (0.0-0.4); BILIRUBIN,TOTAL 0.5 mg/dL (0.2-1.3); CHOLESTEROL 269.36 mg/dL (0-200); TOTAL PROTEIN 6.7 g/dL (6.3-8.2); TRIGLYCERIDES 212 mg/dL (<150)
[2020-05-15 11:17] LABS: DIRECT LDL 160 mg/dL (<100)
[2020-05-15 11:22] LABS: VLDL CHOLESTEROL 42.4 mg/dL (10-31)
== END ==
LOC: OD 09:34
PROVIDERS: ATTEND Specialist
DX: I13.0 Hypertensive heart and chronic kidney disease with heart failure and stage 1 through stage 4 chronic kidney disease, or unspecified chronic kidney disease (principal); I50.32 Chronic diastolic (congestive) heart failure; R06.00 Dyspnea, unspecified; E78.5 Hyperlipidemia, unspecified; J44.9 Chronic obstructive pulmonary disease, unspecified; E03.9 Hypothyroidism, unspecified; N18.4 Chronic kidney disease, stage 4 (severe); I45.10 Unspecified right bundle-branch block; R94.31 Abnormal electrocardiogram [ECG] [EKG]; I27.29 Other secondary pulmonary hypertension; Z79.899 Other long term (current) drug therapy
CPT/HCPCS: 36415; 80061; 80076

== ENCOUNTER → 2020-07-23 | Outpatient (CLI) | payer MEDICARE, OTHER ==
--- NOTE | 2020-07-23 15:03 | ER RDC ASSESSMENT REPORT ---
Intake - In the Last 14 days Have you traveled outside [place]?: No Have you been in close contact with someone CONFIRMED: No Worked in Healthcare?: No - Symptoms Subjective Fever(Emmet feverish): No Chills: No Muscule Aches: No Runny Nose: Yes Sore Throat: No Cough (New or worsening chronic cough): No Shortness of breath: No Nausea or Vomiting: No Headache: No Abdominal Pain: No Diarrhea(3 or more loose stools in last 24 hours): No - Do you have any of the following Chronic lung disease: Asthma or emphysema or COPD: Yes Chronic Lung Disease Comment: copd Cystic Fibrosis: No Diabetes: No High Blood Pressure: Yes Cardiovascular Disease: No Chronic Kidney Disease: No Chronic Liver Disease: No Chronic blood disorder like Sickle Cell Disease: No Weak immune system due to disease or medication: No Neurologic condition that limits movement: No Developmental delay - Moderate to Severe: No Recent (within past 2 weeks) or current : No Morbid Obesity (>100 pounds over ideal weight): No - Objective Temperature: 98.5 F Pulse Rate: 83 Respiratory Rate: 16 Blood Pressure: 138/76 O2 Sat by Pulse Oximetry: 95 Objective: Given above, testing performed: If Testing Performed: Test Specimen Type Sent to General - General Information source: Patient Notes: Patient presents [facility]DC for screening for the coronavirus. Patient reports sinus congestion symptoms but would like to be Covid tested prior to seeing her primary doctor for follow-up. - Related Data Allergies/Adverse Reactions: homatropine [From Hycodan (with homatropin)] Allergy (Verified 10/24/18 18:01) hydrocodone [From Hycodan (with homatropin)] Allergy (Verified 10/24/18 18:01) Antivirals Allergy (Mild, Uncoded 10/24/18 18:01) Past Medical History - General Information source: Patient - Social History Smoking Status: Former Smoker Family History: Reviewed & Not Pertinent - Past Medical History Cardiac Medical History: Reports: Hx Atrial Fibrillation, Hx Hypercholesterolemia, Hx Hypertension - MICARDIS Denies: Hx Heart Attack Pulmonary Medical History: Reports: Hx Asthma - COPD, HOME O2 2 LITERS, Hx Bronchitis, Hx COPD, Hx Pneumonia Denies: Hx Tuberculosis Neurological Medical History: Reports: Hx Cerebrovascular Accident - 1990. Denies: Hx Seizures Endocrine Medical History: Reports: Hx Hypothyroidism GI Medical History: Reports: Hx Gastroesophageal Reflux Disease. Denies: Hx Hepatitis, Hx Hiatal Hernia, Hx Ulcer Musculoskeletal Medical History: Reports Hx Arthritis Psychiatric Medical History: Denies: Hx Depression Infectious Medical History: Denies: Hx Hepatitis Past Surgical History: Reports: Hx Appendectomy, Hx Hysterectomy, Hx Orthopedic Surgery - right and left knee replacement, right RCR, Hx Tonsillectomy. Denies: Hx Mastectomy, Hx Open Heart Surgery, Hx Pacemaker Physical Exam - Notes Notes: The patient was evaluated during the global Covid 19 pandemic, and that diagnosis was suspected/considered upon their initial presentation. Their evaluation and testing was consistent with current guidelines for patients who present with complaints or symptoms that may be related to Covid 19. Full physical exam could not be performed due to covid 19 isolation protocols. Constitutional: Nontoxic appearance, no acute distress Eyes: Nonicteric, sclera clear ENT: Posterior pharynx without exudate, no tonsillar hypertrophy Cardiovascular: Heart rate and rhythm regular Respiratory: Breath sounds clear bilaterally, nonlabored breathing, no use of accessory muscles, no tachypnea Gastrointestinal: Abdomen not distended Muculoskeletal: Moves all extremities well Skin: Normal color Neuro: Awake alert oriented, normal speech Psych: Normal mood and affect Diagnostic Results Laboratory Results: Patient presents with sinus congestion symptoms worrisome for possible Covid 19. Patient does not have emergency worrying symptoms such as difficulty breathing, shortness of breath, chest pain, pressure, confusion or cyanosis. Patient appears suitable for discharge as vital signs are stable and patient is nontoxic in appearance. Good return precautions have been discussed with patient, patient verbalized understanding and is agreeable with discharge plan of care at this time. Patient Education/Counseling Counseling/Education: Patient was provided with discharge information including: As a person under investigation for Covid 19, the [place] department of Health and Human Services, division of public health advises you to adhere to the following guidance until your test results are reported to you. If your t est result is positive, you will receive additional information from your provider and your local health department at that time. Remain at home until you are cleared by the health provider or public health authorities. Keep a log of visitors to your home, notify any visitors to your home of your isolation status. If you plan to move to a new address or leave the county, notify the local health department in your County. Call your doctor or seek care if you have an urgent medical need. Before seeking medical care, call ahead to get instructions from the provider before arriving at the medical office clinic or hospital. Notify them that you are being tested for the virus that causes Covid 19 so that arrangements can be made, as necessary, to prevent transmission to others in the healthcare setting. Next, notify the local health department in your county. If a medical emergency arises and you need to call 911, inform the first responders that you are being tested for the virus that causes Covid 19. Next, notify the local health department in your county. RDC Discharge - Discharge Clinical Impression: Encounter for screening for COVID-19 Condition: Stable Disposition: Home; Selfcare
[2020-07-23 15:22] VITALS: BP 138/76
== END ==
LOC: RDC 14:51
PROVIDERS: ATTEND Nurse Practitioner Family
DX: Z20.822 Contact with and (suspected) exposure to COVID-19 (principal); R09.89 Other specified symptoms and signs involving the circulatory and respiratory systems; J44.9 Chronic obstructive pulmonary disease, unspecified; I10 Essential (primary) hypertension; E78.00 Pure hypercholesterolemia, unspecified; E03.9 Hypothyroidism, unspecified; K21.9 Gastro-esophageal reflux disease without esophagitis; Z86.73 Personal history of transient ischemic attack (TIA), and cerebral infarction without residual deficits; Z86.69 Personal history of other diseases of the nervous system and sense organs; M13.80 Other specified arthritis, unspecified site; Z96.651 Presence of right artificial knee joint; Z88.8 Allergy status to other drugs, medicaments and biological substances
CPT/HCPCS: 99202; U0003; G0463; C9803; 87635; 99211